=== PATIENT | male | born 1935 | race Caucasian/White ===

== ENCOUNTER 2018-02-17 10:31 | Emergency (ER) | payer MEDICARE, MEDICAID ==
[~2018-02-17] VITALS: Ht 167.6 cm; Wt 63.5 kg
[~2018-02-17 10:31] MED LIST: COUMADIN6 MG ORAL; DIGITEK125 MCG PO; FUROSEMIDE40 MG ORAL; GUAIFENESI100 MG/5 M ORAL; LIPITOR40 MG ORAL; LISINOPRIL5 MG ORAL; METOPROLOL SUCC25 MG ORAL; MIRTAZAPINE15 MG ORAL; NORCO 10/3251 EA ORAL; OXYCODONE HCL E10 MG PO; PRILOSEC20 MG ORAL; SPIRONOLACTONE25 MG ORAL; TRAZODONE HCL150 MG ORAL; TYLENOL325 MG ORAL; XANAX0.25 MG ORAL
[2018-02-17 10:40] VITALS: BP 98/57
[2018-02-17] MEDS ORDERED: LORATADINE10 M2 PO (10:43)
[2018-02-17] MEDS ORDERED: CEPHALEXIN500 MG ORAL (10:43)
[2018-02-17] MEDS ORDERED: MULTIVITAMINS1 EAC2 ORAL (10:43)
[2018-02-17] MEDS ORDERED: CITALOPRAM10 MG/5 M1 ORAL (10:43)
[2018-02-17] MEDS ORDERED: MILK OF MA2400 MG/10 ORAL (10:43)
[2018-02-17] MEDS ORDERED: TYLENOL325 M1 PO (10:43)
--- NOTE | 2018-02-17 10:57 | NUR ---
ED Nurse Note: pt came from [facility] d/t bilateral pedal edema. reports pain 09/29. Pt vss at the moment, labs have been drawn per md order. will continue to monitor pt and await further orders
[2018-02-17 11:08] LABS: APPEARANCE,URINE CLEAR; BILIRUBIN, URINE NEGATIVE (NEGATIVE); COLOR,URINE PALE YELLOW; GLUCOSE, URINE (UA) NEGATIVE (NEGATIVE); KETONES,URINE NEGATIVE (NEGATIVE); LEUKOCYTE ESTERASE ,URINE NEGATIVE (NEGATIVE); NITRITE,URINE NEGATIVE (NEGATIVE); PH,URINE 5 (4.5-8.0); PROTEIN,URINE NEGATIVE (NEGATIVE); UROBILINOGEN,URINE NORMAL MG/DL (0.0-1.0)
[2018-02-17 11:09] LABS: BASOPHILS % (AUTO) 1.4 % (0.0-2.0); EOSINOPHILS % (AUTO) 6.5 % (0.0-3.0); HEMATOCRIT 43.1 % (42.0-52.0); HEMOGLOBIN 14.2 G/DL (14.2-18.0); LYMPHOCYTES % (AUTO) 30.9 % (20.0-45.0); MEAN CORPUSCULAR VOLUME 103 FL (80-99); MONOCYTES % (AUTO) 12.7 % (1.0-10.0); NEUTROPHILS % (AUTO) 48.5 % (45.0-75.0); PLATELET COUNT 197 K/UL (150-450); RED BLOOD COUNT 4.18 M/UL (4.70-6.10); RED CELL DISTRIBUTION WIDTH 13.8 % (11.6-14.8); WHITE BLOOD COUNT 5.1 K/UL (4.8-10.8)
--- NOTE | 2018-02-17 11:11 | Diagnostic Imaging Report ---
EXAM: XR Chest, 1 View CLINICAL HISTORY: CP TECHNIQUE: Frontal view of the chest. COMPARISON: No relevant prior studies available. FINDINGS: Lungs: Reduced lung volumes. No confluent consolidation. Query small nodular opacity in the left costophrenic region. Pleural space: No pneumothorax. Heart: Large cardiac mediastinal silhouette. Prominent right hilum. Mediastinum: See above. Bones/joints: No acute fracture. IMPRESSION: Reduced lung volumes. No confluent consolidation.
[2018-02-17 11:21] LABS: ANION GAP 8 mmol/L (5-15); BLOOD UREA NITROGEN 22 mg/dL (7-18); CALCIUM 9.2 MG/DL (8.5-10.1); CARBON DIOXIDE 28 MMOL/L (21-32); CHLORIDE 103 MMOL/L (98-107); CREATININE 0.9 MG/DL (0.55-1.30); INR 1.5 (0.9-1.1); POTASSIUM 3.8 MMOL/L (3.5-5.1); SODIUM 139 MMOL/L (136-145)
[2018-02-17 11:31] LABS: ALANINE AMINOTRANSFERASE 29 U/L (12-78); ALBUMIN 3.5 G/DL (3.4-5.0); ALBUMIN/GLOBULIN RATIO 0.8 (1.0-2.7); ALKALINE PHOSPHATASE 176 U/L (46-116); ASPARTATE AMINO TRANSFERASE 28 U/L (15-37); BILIRUBIN,TOTAL 0.6 MG/DL (0.2-1.0); CREATINE KINASE 75 U/L (26-308)
--- NOTE | 2018-02-17 12:12 | Emergency Room Report ---
History of Present Illness General Chief Complaint: Edema Source: Patient Present Illness HPI Patient is sent in for edema of his lower extremities. It's worse on his right than his left. The patient is had a stroke and therefore has very poor recent memory. He does complain about pain there. He says he feels chills at times. He denies shortness of breath, cough, hemoptysis or chest pain. He states his last tetanus was 2 years ago. Pain rated 8/10, pressure. Worse when standing. Denies headache, Denies DM H/O HTN H/O COPD Allergies: Coded Allergies: NORTRIPTYLINE (Verified Allergy, Intermediate, 07/17/15) Patient History Past Medical History: see triage record Social History Narrative SNF Reviewed Nursing Documentation: PMH: Agreed; PSxH: Agreed Nursing Documentation-PM Past Medical History: No History, Except For Hx Hypertension: Yes Hx COPD: Yes History Of Psychiatric Problem: Yes - Depression, Anxiety Review of Systems All Other Systems: negative except mentioned in HPI Physical Exam Vital Signs Date Time Temp Pulse Resp B/P (MAP) Pulse Ox O2 Delivery O2 Flow Rate FiO2 02/17/18 10:33 97.9 108 20 98/57 98 Room Air Sp02 EP Interpretation: reviewed, normal General Appearance: well appearing, no apparent distress, GCS 15 Head: normocephalic Eyes: bilateral eye normal inspection, bilateral eye PERRL ENT: moist mucus membranes Neck: supple Respiratory: lungs clear, normal breath sounds Cardiovascular #1: regular rate, rhythm, edema - R>> L Cardiovascular #2: 2+ radial (R) Gastrointestinal: normal inspection, normal bowel sounds, non tender, no mass, non-distended Musculoskeletal: back normal, normal range of motion, no calf tenderness, Rohit 's Sign negative, other - stands with assistance Neurologic: alert, sensory intact, motor weakness, oriented - X2 Psychiatric: mood/affect normal Skin: warm/dry, other - erythema R lower leg Medical Decision Making Diagnostic Impression: Primary Impression: Cellulitis Qualified Codes: L03.115 - Cellulitis of right lower limb Additional Impression: Atrial fibrillation Qualified Codes: I48.2 - Chronic atrial fibrillation ER Course Patient presents with edema and erythema the right lower leg. Differential includes DVT, cellulitis, abscess amongst others. Evaluation with EKG, chest x- ray and labs. Treatment will be with IV hydration and most likely what he will need antibiotics. EKG with atrial fibrillation nonspecific ST-T wave changes. Chest x-ray and a right prominence of off of the right atrium. White count is normal. Antibodies are begun. Patient was presented to Dr. Yousif at [facility] who accepts the patient. Improved with treatment. The patient is stable for transfer. He will be going to [facility]. Laboratory Tests Test 02/17/18 10:55 White Blood Count 5.1 K/UL (4.8-10.8) Red Blood Count 4.18 M/UL (4.70-6.10) L Hemoglobin 14.2 G/DL (14.2-18.0) Hematocrit 43.1 % (42.0-52.0) Mean Corpuscular Volume 103 FL (80-99) H Mean Corpuscular Hemoglobin 34.0 PG (27.0-31.0) H Mean Corpuscular Hemoglobin Concent 33.0 G/DL (32.0-36.0) Red Cell Distribution Width 13.8 % (11.6-14.8) Platelet Count 197 K/UL (150-450) Mean Platelet Volume 5.3 FL (6.5-10.1) L Neutrophils (%) (Auto) 48.5 % (45.0-75.0) Lymphocytes (%) (Auto) 30.9 % (20.0-45.0) Monocytes (%) (Auto) 12.7 % (1.0-10.0) H Eosinophils (%) (Auto) 6.5 % (0.0-3.0) H Basophils (%) (Auto) 1.4 % (0.0-2.0) Prothrombin Time 15.6 SEC (9.30-11.50) H Prothrombin Time INR 1.5 (0.9-1.1) H PTT 45 SEC (23-33) H Urine Color Pale yellow Urine Appearance Clear Urine pH 5 (4.5-8.0) Urine Specific [place] 1.010 (1.005-1.035) Urine Protein Negative (NEGATIVE) Urine Glucose (UA) Negative (NEGATIVE) Urine Ketones Negative (NEGATIVE) Urine Blood Negative (NEGATIVE) Urine Nitrite Negative (NEGATIVE) Urine Bilirubin Negative (NEGATIVE) Urine Urobilinogen Normal MG/DL (0.0-1.0) Urine Leukocyte Esterase Negative (NEGATIVE) Sodium Level 139 MMOL/L (136-145) Potassium Level 3.8 MMOL/L (3.5-5.1) Chloride Level 103 MMOL/L (98-107) Carbon Dioxide Level 28 MMOL/L (21-32) Anion Gap 8 mmol/L (5-15) Blood Urea Nitrogen 22 mg/dL (7-18) H Creatinine 0.9 MG/DL (0.55-1.30) Estimate Glomerular Filtration Rate mL/min (>60) Glucose Level 79 MG/DL (74-106) Lactic Acid Level 1.30 mmol/L (0.4-2.0) Calcium Level 9.2 MG/DL (8.5-10.1) Magnesium Level 2.0 MG/DL (1.8-2.4) Total Bilirubin 0.6 MG/DL (0.2-1.0) Aspartate Amino Transferase (AST) 28 U/L (15-37) Alanine Aminotransferase (ALT) 29 U/L (12-78) Alkaline Phosphatase 176 U/L (46-116) H Total Creatine Kinase 75 U/L (26-308) Troponin I 0.021 ng/mL (0.000-0.056) Pro-B-Type Natriuretic Peptide 1916 pg/mL (0-125) H Total Protein 7.7 G/DL (6.4-8.2) Albumin 3.5 G/DL (3.4-5.0) Globulin 4.2 g/dL Albumin/Globulin Ratio 0.8 (1.0-2.7) L EKG Diagnostic Results Rate: normal - rate 80 Rhythm: other - a fib ST Segments: no acute changes Rhythm Strip Diag. Results EP Interpretation: yes Rhythm: no PVC's, no ectopy, other - a fib Chest X-Ray Diagnostic Results Chest X-Ray Diagnostic Results : Chest X-Ray Ordered: Yes # of Views/Limited/Complete: 1 View Indication: Other EP Interpretation: Yes Interpretation: no consolidation, no effusion, no pneumothorax, other - ectatic R atrial prominance Impression: Other Electronically Signed by: Electronically signed by Dilan Berkowitz MD Last Vital Signs Date Time Temp Pulse Resp B/P (MAP) Pulse Ox O2 Delivery O2 Flow Rate FiO2 02/17/18 15:15 97.9 82 16 104/69 96 Room Air Status: improved Disposition: [facility] Condition: Serious Referrals: Dylan Shipman MD (PCP) Dilan Berkowitz MD Feb 17, 2018 12:12
[2018-02-17] MEDS ORDERED: Piperacillin/Tazobactam 3.375 GM in NS 110 ML IVPB ONE (12:15)
[2018-02-17] MEDS ORDERED: Vancomycin 1 GM in D5W 275 ML IVPB ONE (12:15)
[2018-02-17 12:30] VITALS: BP 101/57
--- NOTE | 2018-02-17 14:39 | NUR ---
ED Nurse Note: telephone report given to FARAZ Joel at [facility]. Zosyn is still running at this time.
[2018-02-17 14:46] VITALS: BP 104/69
--- NOTE | 2018-02-17 15:10 | NUR ---
ED Nurse Note: Ambulance arrived to take pt to [facility]. Pt vss, pt was cooperative, pt reported no pain.
[2018-02-17 15:15] VITALS: BP 104/69
== END 2018-02-17 15:10 | disposition short-term general hospital (02) ==
LOC: EDBD 10:31 → EMR 11:21
DX: L03.115 Cellulitis of right lower limb (principal); I48.2 Chronic atrial fibrillation; R60.0 Localized edema; I10 Essential (primary) hypertension; J44.9 Chronic obstructive pulmonary disease, unspecified; Z88.8 Allergy status to other drugs, medicaments and biological substances
CPT/HCPCS: 36415; 71045; 80053; 81003; 82550; 83605; 83735; 83880; 84484; 85025; 85610; 85730; 93005; 96361; 96365; 96367; 99285; J2543; J3370

== ENCOUNTER 2019-02-07 08:01 | Emergency (ER) | payer MEDICARE, MEDICAID ==
[~2019-02-07] VITALS: Ht 170.2 cm; Wt 63.5 kg
[~2019-02-07 08:01] MED LIST changes: +CEPHALEXIN500 MG ORAL; +CITALOPRAM10 MG/5 M1 ORAL; +LORATADINE10 M2 PO; +MILK OF MA2400 MG/10 ORAL; +MULTIVITAMINS1 EAC2 ORAL; +TYLENOL325 M1 PO
[2019-02-07 08:07] VITALS: BP 110/78
--- NOTE | 2019-02-07 08:07 | NUR ---
ED Nurse Note: PT BROUGHT IN BY [facility] SMITH PRESENTS TO ED WITH NOSE BLEEDING. PER MES,PT WAS PICKING ON HIS NOSE THIS MORNING AND STARTED TO BLEED. NO FALL/TRAUMA. PT REPORTED TO BE TAKING COUMADIN. AAO X1, WITHDRAWS TO PAIN. NOTED DRIED BLOOD ON PT'S FACE AND NOSE WITH NASAL PACKING ON RIGHT NOSTRIL. NO RESPIRATORY DISTRESS AND SPEAKS IN FULL SENTENCES.
--- NOTE | 2019-02-07 08:07 | Emergency Room Report ---
History of Present Illness General Chief Complaint: General Complaint Source: Patient, EMS Present Illness HPI Disclaimer: Please note that this report is being documented using DRAGON technology. This can lead to erroneous entry secondary to incorrect interpretation by the dictating instrument. HPI: 83-year-old male with history of severe dementia, atrial fibrillation currently on Coumadin presents for evaluation of epistaxis. There was no trauma reported. The patient presents from his nursing facility after they could not control bleeding at the side. He was reportedly picking his nose early this morning and could not stop the bleeding. A rapid Rhino was placed which achieved hemostasis. No further bleeding reported. Unclear how much blood he lost at the scene. Patient was agitated on route trying to rip off his bandages and arrives in soft wrist restraints tied to the gurney by EMS. Cannot provide any significant history given his significant dementia. He is complaining of dysuria over the past few days. PMH: Atrial fibrillation, dementia, CHF, COPD, hypertension PSH: Reviewed Allergies: NSAIDs, nortriptyline Social Hx: Unknown Allergies: Coded Allergies: NORTRIPTYLINE (Verified Allergy, Intermediate, 07/17/15) NSAIDS (NON-STEROIDAL ANTI-INFLAMMA (Unverified Allergy, Unknown, 02/07/19 ) Nursing Documentation-PMH Hx Hypertension: Yes Hx COPD: Yes Review of Systems All Other Systems: negative except mentioned in HPI Physical Exam Vital Signs Date Time Temp Pulse Resp B/P (MAP) Pulse Ox O2 Delivery O2 Flow Rate FiO2 02/07/19 07:57 100 18 157/90 (112) 97 Room Air General: Awake and alert, no acute distress HEENT: Normocephalic, atraumatic. Multiple skin picking sites over the right mosque, one of which is bleeding. No tenderness or soft tissue swelling over the facial bones. EOMI. PERRLA. There is a rapid Rhino placed in the right nares with hemostasis achieved. Dried blood around the mouth and in the tongue. No active bleeding visualized. Neck: Supple, trachea midline. Arrives without cervical collar Chest Wall: No tenderness, no deformity, no crepitus CV: Irregularly irregular rhythm. Resp: Normal work of breathing. No cough, wheezing or crackles appreciated Abd: Soft, nontender, nondistended Skin: Intact. No abrasions, laceration or rash over the exposed skin MSK: Normal tone and bulk. No obvious deformity. Moving all extremities. Ambulating without difficulty. Neuro: Awake and alert. Demented, confused, agitated. Medical Decision Making Diagnostic Impression: Primary Impression: Epistaxis Additional Impression: Subtherapeutic international normalized ratio (INR) ER Course 83-year-old anticoagulated male presents for evaluation of epistaxis. Currently hemostatic with rapid Rhino in place. No trauma reported. Will obtain labs to rule out significant blood loss and check INR. He arrives with stable vital signs and is well-appearing. Laboratory Tests Test 02/07/19 08:15 02/07/19 08:45 White Blood Count 7.8 K/UL (4.8-10.8) Red Blood Count 4.03 M/UL (4.70-6.10) L Hemoglobin 13.7 G/DL (14.2-18.0) L Hematocrit 40.7 % (42.0-52.0) L Mean Corpuscular Volume 101 FL (80-99) H Mean Corpuscular Hemoglobin 34.0 PG (27.0-31.0) H Mean Corpuscular Hemoglobin Concent 33.7 G/DL (32.0-36.0) Red Cell Distribution Width 14.8 % (11.6-14.8) Platelet Count 171 K/UL (150-450) Mean Platelet Volume 5.6 FL (6.5-10.1) L Neutrophils (%) (Auto) 73.5 % (45.0-75.0) Lymphocytes (%) (Auto) 13.0 % (20.0-45.0) L Monocytes (%) (Auto) 12.3 % (1.0-10.0) H Eosinophils (%) (Auto) 0.7 % (0.0-3.0) Basophils (%) (Auto) 0.5 % (0.0-2.0) Prothrombin Time 11.4 SEC (9.30-11.50) Prothrombin Time INR 1.1 (0.9-1.1) Sodium Level 137 MMOL/L (136-145) Potassium Level 4.8 MMOL/L (3.5-5.1) Chloride Level 102 MMOL/L (98-107) Carbon Dioxide Level 27 MMOL/L (21-32) Anion Gap 8 mmol/L (5-15) Blood Urea Nitrogen 33 mg/dL (7-18) H Creatinine 1.0 MG/DL (0.55-1.30) Estimate Glomerular Filtration Rate mL/min (>60) Glucose Level 119 MG/DL (74-106) H Calcium Level 9.4 MG/DL (8.5-10.1) Urine Color Yellow Urine Appearance Clear Urine pH 5 (4.5-8.0) Urine Specific [place] 1.015 (1.005-1.035) Urine Protein 3+ (NEGATIVE) H Urine Glucose (UA) Negative (NEGATIVE) Urine Ketones Negative (NEGATIVE) Urine Blood 1+ (NEGATIVE) H Urine Nitrite Negative (NEGATIVE) Urine Bilirubin Negative (NEGATIVE) Urine Urobilinogen 8 MG/DL (0.0-1.0) H Urine Leukocyte Esterase 1+ (NEGATIVE) H Urine RBC 0-2 /HPF (0 - 0) H Urine WBC 2-4 /HPF (0 - 0) Urine Squamous Epithelial Cells Few /LPF (NONE/OCC) Urine Bacteria Occasional /HPF (NONE) Reevaluation Time: 10:32 Last Vital Signs Date Time Temp Pulse Resp B/P (MAP) Pulse Ox O2 Delivery O2 Flow Rate FiO2 02/07/19 07:57 100 18 157/90 (112) 97 Room Air Reevaluation Impression INR found to be subtherapeutic. No evidence of urinary tract infection. No anemia. Bleeding is controlled and Rhino Rocket was removed. No recurrent epistaxis. The patient is stable and suitable for outpatient follow-up. I updated his PMD. We will follow-up as outpatient. We will arrange for return to his facility. Disposition: [facility] Condition: Stable Carlitos Khan MD Feb 07, 2019 08:07
[2019-02-07] MEDS ORDERED: LIPITOR20 MG ORAL (08:19)
[2019-02-07] MEDS ORDERED: CEPACOL SORE T1 EAC5 MM (08:19)
[2019-02-07] MEDS ORDERED: GABAPENTIN100 MG ORAL (08:19)
[2019-02-07] MEDS ORDERED: DOCUSATE SODIU100 M2 ORAL (08:19)
[2019-02-07] MEDS ORDERED: OMEPRAZOLE20 M2 ORAL (08:19)
[2019-02-07] MEDS ORDERED: LORazepam Inj 2mg/ml 1ml IV ONE ×2 (08:30→09:00)
[2019-02-07 08:44] LABS: ANION GAP 8 mmol/L (5-15); BLOOD UREA NITROGEN 33 mg/dL (7-18); CALCIUM 9.4 MG/DL (8.5-10.1); CARBON DIOXIDE 27 MMOL/L (21-32); CHLORIDE 102 MMOL/L (98-107); POTASSIUM 4.8 MMOL/L (3.5-5.1); SODIUM 137 MMOL/L (136-145)
--- NOTE | 2019-02-07 08:50 | NUR ---
ED Nurse Note: COLLECTED URIEN THEN SENT.
[2019-02-07 09:02] LABS: BASOPHILS % (AUTO) 0.5 % (0.0-2.0); EOSINOPHILS % (AUTO) 0.7 % (0.0-3.0); HEMATOCRIT 40.7 % (42.0-52.0); HEMOGLOBIN 13.7 G/DL (14.2-18.0); MEAN CORPUSCULAR VOLUME 101 FL (80-99); MONOCYTES % (AUTO) 12.3 % (1.0-10.0); NEUTROPHILS % (AUTO) 73.5 % (45.0-75.0); PLATELET COUNT 171 K/UL (150-450); RED BLOOD COUNT 4.03 M/UL (4.70-6.10); RED CELL DISTRIBUTION WIDTH 14.8 % (11.6-14.8); WHITE BLOOD COUNT 7.8 K/UL (4.8-10.8)
[2019-02-07 09:05] LABS: INR 1.1 (0.9-1.1)
[2019-02-07 09:06] LABS: APPEARANCE,URINE CLEAR; BILIRUBIN, URINE NEGATIVE (NEGATIVE); GLUCOSE, URINE (UA) NEGATIVE (NEGATIVE); KETONES,URINE NEGATIVE (NEGATIVE); LEUKOCYTE ESTERASE ,URINE 1+ (NEGATIVE); NITRITE,URINE NEGATIVE (NEGATIVE); PH,URINE 5 (4.5-8.0); PROTEIN,URINE 3+ (NEGATIVE); UROBILINOGEN,URINE 8 MG/DL (0.0-1.0)
[2019-02-07 09:11] LABS: COLOR,URINE YELLOW
--- NOTE | 2019-02-07 09:40 | NUR ---
ED Nurse Note: PT TAKEN TO CT AND STABLE.
--- NOTE | 2019-02-07 09:55 | NUR ---
ED Nurse Note: PT CAME BACK FROM CT AND STABLE.
--- NOTE | 2019-02-07 10:02 | NUR ---
ED Nurse Note: TRAVIS FROM RADIOLOGY STATES THEY WERE UNABLE TO DO CT HEAD DUE TO PT WAS MOVING TOO MUCH. JOSSIE NOTIFIED.
[2019-02-07 10:10] VITALS: BP 95/76
[2019-02-07] MEDS ORDERED: Hydrogen Peroxide 473ml Bottle TOPIC ONE ×2 (10:15→10:16)
--- NOTE | 2019-02-07 10:20 | NUR ---
ED Nurse Note: RN CLEANSED DRIED BLOOD ON FACE WITH NS AND HYDROGEN PEROXIDE AND PATTED DRY. DR RICHARDSON ORDERED TO REMOVE NASAL PACKING AT THIS TIME. NO ACTIVE BLEEDING NOTED.
--- NOTE | 2019-02-07 10:58 | NUR ---
ED Nurse Note: REPORT GIVEN TO TOMMIE RUTH OF [facility].
--- NOTE | 2019-02-07 11:56 | NUR ---
ED Nurse Note: transporation arrived. VS checked which was stable and report given to FRANCO Rivera. pt left unit in stable condition. no bleeding, iv and id band removed.
[2019-02-07 11:57] VITALS: BP 107/81
== END 2019-02-07 11:59 ==
LOC: EDBD 08:01 → EMR 09:40
DX: R04.0 Epistaxis (principal); R79.1 Abnormal coagulation profile; I10 Essential (primary) hypertension; J44.9 Chronic obstructive pulmonary disease, unspecified; Z88.6 Allergy status to analgesic agent; Z88.8 Allergy status to other drugs, medicaments and biological substances
CPT/HCPCS: 36415; 80048; 81003; 85025; 85610; 96374; 99284

== ENCOUNTER 2019-02-22 12:52 | Inpatient (IN) | payer MEDICARE, MEDICAID ==
[~2019-02-22] VITALS: Ht 165.1 cm; Wt 64.4 kg
[2019-02-22] VITALS (7 sets, daily range): BP systolic 80–127; BP diastolic 51–68
[~2019-02-22 12:52] MED LIST changes: +CEPACOL SORE T1 EAC5 MM; +DOCUSATE SODIU100 M2 ORAL; +GABAPENTIN100 MG ORAL; +LIPITOR20 MG ORAL; +OMEPRAZOLE20 M2 ORAL
--- NOTE | 2019-02-22 12:52 | NUR ---
ED Nurse Note: Pt BIBA for CO generalized pain 8/10 and abnormal labs. Pt aao x 2-3. Pt brought in from SNF. ERMD at bedside. Pt gait is weak and shaky, pt is unable to stand on own.
[2019-02-22] MEDS ORDERED: GABAPENTIN100 MG ORAL (12:57)
[2019-02-22] MEDS ORDERED: NORCO 5-325 TA1 EACH ORAL (12:57)
[2019-02-22] MEDS ORDERED: MULTIVITAMINS1 EAC8 ORAL (12:57)
[2019-02-22] MEDS ORDERED: METOPROLOL TART25 MG ORAL (12:57)
[2019-02-22] MEDS ORDERED: Morphine Sulfate 2mg/ml Inj(IV/IM USE ONLY) IVP ONE ×2 (13:15→15:00)
--- NOTE | 2019-02-22 13:25 | NUR ---
ED Nurse Note: Patient reports 'I cannot pee, feels like I need to go, but I can't' Patient has hx of dementia. Patient wanted to stand up for urination. RN/EMT tech assisted patient from sitting to standing and patient was shaking a lot. Assisted patient back to the bed. Slight distended bladder on palpation noted. ERMD made aware. Educated patient to remain in bed due to high fall risk.
--- NOTE | 2019-02-22 13:30 | NUR ---
ED Nurse Note: RN inserted f/c 16Fr as ordered without any resistance @ 1316. Patient tolerated the procedure with minimal discomfort.
--- NOTE | 2019-02-22 13:37 | Diagnostic Imaging Report ---
Indication: Altered mental status Technique: XRAY Chest 1v Comparison: 02/17/2018 Findings: The exam as patient is rotated significantly to the right. Heart size appears enlarged but stable compared to the prior exam. There are atherosclerotic gastric calcifications. There is haziness of the pulmonary vascularity suggesting mild interstitial edema/fluid overload. There are asymmetric opacities in the left lower lung. There is blunting of the left costophrenic sulcus suggesting trace left pleural effusion. No pneumothorax. There are degenerative changes in the spine. No acute osseous abnormality. Impression: Focal asymmetric hazy opacities in the left lower lung concerning for pneumonia. Clinical correlation and follow-up recommended. Underlying slight haziness of the pulmonary vascularity suggesting mild congestive changes or fluid overload.
[2019-02-22 13:53] LABS: APPEARANCE,URINE CLEAR; BILIRUBIN, URINE NEGATIVE (NEGATIVE); GLUCOSE, URINE (UA) NEGATIVE (NEGATIVE); KETONES,URINE NEGATIVE (NEGATIVE); LEUKOCYTE ESTERASE ,URINE NEGATIVE (NEGATIVE); NITRITE,URINE NEGATIVE (NEGATIVE); PH,URINE 5 (4.5-8.0); PROTEIN,URINE 1+ (NEGATIVE); UROBILINOGEN,URINE 1 MG/DL (0.0-1.0)
[2019-02-22 13:54] LABS: BASOPHILS % (AUTO) 0.4 % (0.0-2.0); EOSINOPHILS % (AUTO) 0.2 % (0.0-3.0); HEMATOCRIT 38.2 % (42.0-52.0); HEMOGLOBIN 12.6 G/DL (14.2-18.0); LYMPHOCYTES % (AUTO) 13.9 % (20.0-45.0); MEAN CORPUSCULAR VOLUME 102 FL (80-99); NEUTROPHILS % (AUTO) 76.5 % (45.0-75.0); PLATELET COUNT 225 K/UL (150-450); RED BLOOD COUNT 3.74 M/UL (4.70-6.10); RED CELL DISTRIBUTION WIDTH 15.5 % (11.6-14.8); WHITE BLOOD COUNT 6.5 K/UL (4.8-10.8)
[2019-02-22 13:55] LABS: COLOR,URINE YELLOW
[2019-02-22 13:57] LABS: ANION GAP 13 mmol/L (5-15); BLOOD UREA NITROGEN 49 mg/dL (7-18); CALCIUM 8.5 MG/DL (8.5-10.1); CARBON DIOXIDE 23 MMOL/L (21-32); CHLORIDE 98 MMOL/L (98-107); CREATININE 1.9 MG/DL (0.55-1.30); POTASSIUM 5.4 MMOL/L (3.5-5.1); SODIUM 134 MMOL/L (136-145)
[2019-02-22 14:10] LABS: ALANINE AMINOTRANSFERASE 37 U/L (12-78); ALBUMIN 3.4 G/DL (3.4-5.0); ALKALINE PHOSPHATASE 168 U/L (46-116); ASPARTATE AMINO TRANSFERASE 45 U/L (15-37); BILIRUBIN,TOTAL 1.3 MG/DL (0.2-1.0); CREATINE KINASE 128 U/L (26-308)
--- NOTE | 2019-02-22 14:12 | Emergency Room Report ---
History of Present Illness General Chief Complaint: Pain Source: Patient, EMS (Dilan Berkowitz MD) Present Illness HPI Patient was transported by EMS for total body pain. He was complained about 8/ 10 pain to paramedics. Apparently they report his oxygen saturation was 89%. Review of the ambulance report does not have this documented. From a senior living facility. The patient is a poor historian. He admits to prior smoking marijuana but denies smoking cigarettes or having problems with his lungs. He is complaining that he has to urinate at this time and is perseverating on that. The patient has a history of atrial fibrillation and is on warfarin. The patient states he needs to urinate and cannot. Is complaining about pain on his right side. He rates his pain 8/10. He poorly characterizes it. Full review of systems is not obtainable as he is not answering questions. 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 use - THC Social History Narrative long-term facility Reviewed Nursing Documentation: PMH: Agreed; PSxH: Agreed (Dilan Berkowitz MD) Nursing Documentation-PMH Past Medical History: No History, Except For Hx Cardiac Problems: Yes - STROKE, CHF,depression, anxiety Hx Hypertension: Yes Hx COPD: Yes Hx Gastrointestinal Problems: Yes - diverticulitis, GERD Hx Neurological Problems: Yes - dementia (Dilan Berkowitz MD) Review of Systems All Other Systems: limited (Dilan Berkowitz MD) Physical Exam Vital Signs Date Time Temp Pulse Resp B/P (MAP) Pulse Ox O2 Delivery O2 Flow Rate FiO2 02/22/19 12:41 93.9 107 16 93/63 (73) 90 Room Air Sp02 EP Interpretation: reviewed, abnormal - Interpreted as low by me General Appearance: alert, mild distress, thin, Chronically Ill Head: normocephalic, atraumatic Eyes: bilateral eye normal inspection, bilateral eye PERRL, bilateral eye EOMI ENT: dry mucus membranes Neck: supple, no meningismus, no bony tend Respiratory: chest non-tender, decreased breath sounds, wheezing, expiration Cardiovascular #1: irregularly irregular, edema - Bilateral brawny worse on right Cardiovascular #2: 2+ radial (R), 2+ dorsalis pedis (R), 2+ dorsalis pedis (L) Gastrointestinal: normal inspection, normal bowel sounds, non tender Genitourinary: no CVA tenderness Musculoskeletal: pelvis stable, tender - Bilateral lower extremities Neurologic: alert, oriented - X1, DTRs symmetric, motor weakness - Lower extremities - upper extremities with normal strength Psychiatric: anxious - Agitated Skin: normal color, other - erythema LE bilat, R > L (Dilan Berkowitz MD) Procedures Critical Care Time Critical Care Time Total Critical Care Time: 90 min bedside evaluation and treatment excludes procedures (EKG). Reason for critical care: Hypoxia, hypotension, pneumonia, elevated INR Possible complications: hypotension, hypertension, [place], shock, arrhythmias, metabolic acidosis, end organ damage, respiratory failure. Interventions: Fluid bolus, antibiotics, analgesia, repeated evaluations, pressures and plasma transfusion, managing agitation, discussion with [facility] physician Course: Patient via EMS with body pain and low oxygen saturation. Difficult to care for patient as he is agitated.. Improved with Persaud catheter. Improved with morphine. Left lower lobe pneumonia and bolus of fluid given and antibiotics begun. INR greater than 10. Discussion with blood bank to transfuse fresh frozen plasma. Blood pressure low and bolus infusing infusing. Repeat analgesia. Fresh frozen plasma infusing without difficulty. Discussion with [facility] physician and deemed not stable for transfer. Repeat evaluation with improved oxygen saturation and blood pressure. Consultations: nursing staff, EMS, blood bank, respiratory therapy, [facility] physician Performed by: Dr. Berkowitz Tolerated well condition = critical (Dilan Berkowitz MD) Medical Decision Making Diagnostic Impression: Primary Impression: Left lower lobe pneumonia Qualified Codes: J18.9 - Pneumonia, unspecified organism Additional Impressions: Cellulitis of right leg Renal insufficiency Excessive anticoagulation Atrial fibrillation Qualified Codes: I48.11 - Longstanding persistent atrial fibrillation ER Course Patient presents with hypoxia respiratory difficulty and some agitation. Differential includes acute myocardial infarction, sepsis, pneumonia, cellulitis amongst others. Evaluation with EKG, chest x-ray and labs. Patient oxygen is better. Breathing treatments ordered. Patient appears dry and a bolus of fluids ordered. Agitated. Will give morphine and reassess agitation. EKG atrial fibrillation with nonspecific ST-T wave changes. Chest x-ray left lower lobe infiltrate and COPD. Normal white count. Slight anemia. Renal insufficiency elevated BNP. Initial lactic acid elevated. Influenza negative. Antibiotics ordered for left lower lobe infiltrate. Less agitation after morphine. More cooperative. INR > 10 called. Type and Rh ordered and discussed with blood bank need for FFP. Emergency transfusion signed by physicians. Attempt to call family. Patient with pain and requests removal of persaud. C/O pain in "backside" morphine repeated. Discussed with Dr. Kody Perez - making non-transferrable. Signed out to Dr. Kruse. He discussed treatment with family members. Allegedly DNI DNR. They agreed with fresh frozen plasma transfusions. Patient improved but still critical. Laboratory Tests Test 02/22/19 13:24 02/22/19 18:13 White Blood Count 6.5 K/UL (4.8-10.8) Red Blood Count 3.74 M/UL (4.70-6.10) L Hemoglobin 12.6 G/DL (14.2-18.0) L Hematocrit 38.2 % (42.0-52.0) L Mean Corpuscular Volume 102 FL (80-99) H Mean Corpuscular Hemoglobin 33.8 PG (27.0-31.0) H Mean Corpuscular Hemoglobin Concent 33.1 G/DL (32.0-36.0) Red Cell Distribution Width 15.5 % (11.6-14.8) H Platelet Count 225 K/UL (150-450) Mean Platelet Volume 6.1 FL (6.5-10.1) L Neutrophils (%) (Auto) 76.5 % (45.0-75.0) H Lymphocytes (%) (Auto) 13.9 % (20.0-45.0) L Monocytes (%) (Auto) 9.0 % (1.0-10.0) Eosinophils (%) (Auto) 0.2 % (0.0-3.0) Basophils (%) (Auto) 0.4 % (0.0-2.0) Prothrombin Time > 150.0 SEC (9.30-11.50) H Prothrombin Time INR > 10.0 (0.9-1.1) *H PTT 65 SEC (23-33) H Urine Color Yellow Urine Appearance Clear Urine pH 5 (4.5-8.0) Urine Specific [place] 1.015 (1.005-1.035) Urine Protein 1+ (NEGATIVE) H Urine Glucose (UA) Negative (NEGATIVE) Urine Ketones Negative (NEGATIVE) Urine Blood Negative (NEGATIVE) Urine Nitrite Negative (NEGATIVE) Urine Bilirubin Negative (NEGATIVE) Urine Urobilinogen 1 MG/DL (0.0-1.0) H Urine Leukocyte Esterase Negative (NEGATIVE) Urine RBC 0 /HPF (0 - 0) Urine WBC 0-2 /HPF (0 - 0) Urine Squamous Epithelial Cells Occasional /LPF Urine Bacteria Occasional /HPF (NONE) Sodium Level 134 MMOL/L (136-145) L Potassium Level 5.4 MMOL/L (3.5-5.1) H Chloride Level 98 MMOL/L (98-107) Carbon Dioxide Level 23 MMOL/L (21-32) Anion Gap 13 mmol/L (5-15) Blood Urea Nitrogen 49 mg/dL (7-18) H Creatinine 1.9 MG/DL (0.55-1.30) H Estimate Glomerular Filtration Rate mL/min (>60) Glucose Level 88 MG/DL (74-106) Lactic Acid Level 2.60 mmol/L (0.4-2.0) H 1.80 mmol/L (0.66-2.22) Calcium Level 8.5 MG/DL (8.5-10.1) Magnesium Level 2.3 MG/DL (1.8-2.4) Total Bilirubin 1.3 MG/DL (0.2-1.0) H Direct Bilirubin 0.9 MG/DL (0.0-0.3) H Aspartate Amino Transferase (AST) 45 U/L (15-37) H Alanine Aminotransferase (ALT) 37 U/L (12-78) Alkaline Phosphatase 168 U/L (46-116) H Total Creatine Kinase 128 U/L (26-308) Troponin I 0.034 ng/mL (0.000-0.056) Pro-B-Type Natriuretic Peptide 5061 pg/mL (0-125) H Total Protein 6.9 G/DL (6.4-8.2) Albumin 3.4 G/DL (3.4-5.0) Globulin 3.5 g/dL Albumin/Globulin Ratio 1.0 (1.0-2.7) Lipase 55 U/L (73-393) L Microbiology Date/Time Source Procedure Growth Status 02/22/19 13:24 Nasal Nares - Final Complete 02/22/19 13:24 Nasal Nares - Final Complete (Dilan Berkowitz MD) ER Course Patient is an 83-year-old male presented for sepsis. He was noted to be anticoagulated with Coumadin for atrial fibrillation. 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 Patient was started on IV FFP to reverse coagulopathy. Dr. Aaron Shipman was contacted for inpatient management due to covering physician for [facility] Labs Test 02/22/19 13:24 White Blood Count 6.5 K/UL (4.8-10.8) Red Blood Count 3.74 M/UL (4.70-6.10) Hemoglobin 12.6 G/DL (14.2-18.0) Hematocrit 38.2 % (42.0-52.0) Mean Corpuscular Volume 102 FL (80-99) Mean Corpuscular Hemoglobin 33.8 PG (27.0-31.0) Mean Corpuscular Hemoglobin Concent 33.1 G/DL (32.0-36.0) Red Cell Distribution Width 15.5 % (11.6-14.8) Platelet Count 225 K/UL (150-450) Mean Platelet Volume 6.1 FL (6.5-10.1) Neutrophils (%) (Auto) 76.5 % (45.0-75.0) Lymphocytes (%) (Auto) 13.9 % (20.0-45.0) Monocytes (%) (Auto) 9.0 % (1.0-10.0) Eosinophils (%) (Auto) 0.2 % (0.0-3.0) Basophils (%) (Auto) 0.4 % (0.0-2.0) Prothrombin Time > 150.0 SEC (9.30-11.50) Prothromb Time International Ratio > 10.0 (0.9-1.1) Activated Partial Thromboplast Time 65 SEC (23-33) Urine Color Yellow Urine Appearance Clear Urine pH 5 (4.5-8.0) Urine Specific [place] 1.015 (1.005-1.035) Urine Protein 1+ (NEGATIVE) Urine Glucose (UA) Negative (NEGATIVE) Urine Ketones Negative (NEGATIVE) Urine Blood Negative (NEGATIVE) Urine Nitrite Negative (NEGATIVE) Urine Bilirubin Negative (NEGATIVE) Urine Urobilinogen 1 MG/DL (0.0-1.0) Urine Leukocyte Esterase Negative (NEGATIVE) Urine RBC 0 /HPF (0 - 0) Urine WBC 0-2 /HPF (0 - 0) Urine Squamous Epithelial Cells Occasional /LPF Urine Bacteria Occasional /HPF (NONE) Sodium Level 134 MMOL/L (136-145) Potassium Level 5.4 MMOL/L (3.5-5.1) Chloride Level 98 MMOL/L (98-107) Carbon Dioxide Level 23 MMOL/L (21-32) Anion Gap 13 mmol/L (5-15) Blood Urea Nitrogen 49 mg/dL (7-18) Creatinine 1.9 MG/DL (0.55-1.30) Estimat Glomerular Filtration Rate mL/min (>60) Glucose Level 88 MG/DL (74-106) Lactic Acid Level 2.60 mmol/L (0.4-2.0) Calcium Level 8.5 MG/DL (8.5-10.1) Magnesium Level 2.3 MG/DL (1.8-2.4) Total Bilirubin 1.3 MG/DL (0.2-1.0) Direct Bilirubin 0.9 MG/DL (0.0-0.3) Aspartate Amino Transf (AST/SGOT) 45 U/L (15-37) Alanine Aminotransferase (ALT/SGPT) 37 U/L (12-78) Alkaline Phosphatase 168 U/L (46-116) Total Creatine Kinase 128 U/L (26-308) Troponin I 0.034 ng/mL (0.000-0.056) Pro-B-Type Natriuretic Peptide 5061 pg/mL (0-125) Total Protein 6.9 G/DL (6.4-8.2) Albumin 3.4 G/DL (3.4-5.0) Globulin 3.5 g/dL Albumin/Globulin Ratio 1.0 (1.0-2.7) Lipase 55 U/L (73-393) (Meet Kruse MD) EKG Diagnostic Results Rate: normal Rhythm: other - Fibrillation ST Segments: no acute changes - Specific ST-T wave changes (Dilan Berkowitz MD) Rhythm Strip Diag. Results EP Interpretation: yes Rhythm: no PVC's, no ectopy, other - Atrial fibrillation (Dilan Berkowitz MD) Chest X-Ray Diagnostic Results Chest X-Ray Diagnostic Results : Chest X-Ray Ordered: Yes # of Views/Limited/Complete: 1 View Indication: Other EP Interpretation: Yes Interpretation: no effusion, no pneumothorax, other - Left lower lobe infiltrate Impression: Other Electronically Signed by: Electronically signed by Dilan Berkowitz MD (Dilan Berkowitz MD) Last Vital Signs Date Time Temp Pulse Resp B/P (MAP) Pulse Ox O2 Delivery O2 Flow Rate FiO2 02/22/19 21:39 120 125/67 02/22/19 19:15 97.1 18 98 Room Air Status: improved (Dilan Berkowitz MD) Disposition: ADMITTED INPATIENT Condition: Critical Referrals: NON PHYSICIAN (PCP) Dilan Berkowitz MD Feb 22, 2019 14:12 Meet Kruse MD Feb 22, 2019 16:29
[2019-02-22] MEDS ORDERED: Vancomycin 1 GM in NS 275 ML IVPB ONE (14:15)
[2019-02-22] MEDS ORDERED: Cefepime HCl 1 GM in D5W 55 ML IVPB ONE (14:15)
[2019-02-22 14:17] LABS: PARTIAL THROMBOPLASTIN TIME 65 SEC (23-33)
[2019-02-22 14:18] LABS: INR > 10.0 (0.9-1.1)
[2019-02-22 14:26] LABS: BILIRUBIN,DIRECT 0.9 MG/DL (0.0-0.3)
--- NOTE | 2019-02-22 14:30 | NUR ---
ED Nurse Note: Pt BP 84/59, HR 104. ERMD made aware
--- NOTE | 2019-02-22 14:40 | NUR ---
ED Nurse Note: Message left to Alfonso Murray POA. RN spoke to Sherry @ [phone]. ERMD made aware. Dr. Berkowitz/Dr. Kruse signed blood transfusion form. Blood bank contacted by Dr. Berkowitz for FFP.
--- NOTE | 2019-02-22 15:15 | NUR ---
ED Nurse Note: ERMD made aware of BP 97/70 with HR 102. IV fluid running at 300ml/hr and waiting for FFP. ERMD ordered to administer FFP, bolus when it is available.
--- NOTE | 2019-02-22 15:30 | NUR ---
ED Nurse Note: Confirmed with Dr. Berkowitz and ok to administer 1L NS at 300ml/hr and FFP 3 units at bolus.
--- NOTE | 2019-02-22 15:54 | NUR ---
ED Nurse Note: All medications held due to FFP administration
--- NOTE | 2019-02-22 15:55 | NUR ---
FFP transfusion initiated, RN at bedside monitoring vital signs. Pt tolerated well.
--- NOTE | 2019-02-22 15:55 | NUR ---
ED Nurse Note: Meet Cosme informed this RN that he spoke to POA (Alfonso Murray) and patient is DNR/DNI with selective treatment only. halal butcher called him back to update POLST, but he is not available. halal butcher left message to Sherry @ [phone] to call us back.
--- NOTE | 2019-02-22 16:00 | NUR ---
ED Nurse Note: Dr. Berkowitz ordered to discontinue f/c. Patient had approximately 400ml UO. Patient tolerated the procedure without difficulty. No bleeding noted.
--- NOTE | 2019-02-22 16:10 | NUR ---
ED Nurse Note: RN at bedside for first 15 minutes of blood transfusion
--- NOTE | 2019-02-22 17:35 | NUR ---
ED Nurse Note: RN stayed with pt during first 15 mins of FFP administration, no adverse reactions noted.
--- NOTE | 2019-02-22 18:45 | NUR ---
ED Nurse Note: Report given to FARAZ Paul on SDU
[2019-02-22] MEDS ORDERED: Vancomycin 1gm vial IVPB ONE (18:58)
--- NOTE | 2019-02-22 19:10 | NUR ---
ED Nurse Note: Pt transferred to SDU, report given to Juan Carlos RN
--- NOTE | 2019-02-22 19:15 | NUR ---
NURSE NOTES: Pt transferred to unit via [facility]. Belonging checked. Skin checked and sacral s2 noted and picture taken. Pt confused, a/o x2, confused. A-fib on playground monitor with HR of 120 noted. BP 125/67, T 97/0. P 120, RR 20, Saturating at 96% on 2L O2. IV on R FA 20G, intact. Bed in the lowest position. Side rials up x3. Will continue to monitor.
--- NOTE | 2019-02-22 20:00 | NUR ---
NURSE NOTES: Admitting orders received from and will be carried out.
[2019-02-22] MEDS: Atorvastatin 20mg tab ORAL SCH (21:37)
[2019-02-22] MEDS: HYDROcodone/Acetamin 5/325 tab ORAL PRN (21:38)
[2019-02-22] MEDS: Piperacillin/Tazobactam 3.375 GM in NS 110 ML IVPB SCH (21:41)
--- NOTE | 2019-02-22 22:00 | NUR ---
NURSE NOTES: Pt is uncooperative, keeps pulling out tubings, and yelling. Refused to put gown back on. Keeps trying to get up. Will continue to monitor.
[2019-02-23] VITALS (7 sets, daily range): BP systolic 74–156; BP diastolic 45–84
[2019-02-23] MEDS: HYDROcodone/Acetamin 5/325 tab ORAL PRN ×4 (02:40→23:10)
[2019-02-23] MEDS: Piperacillin/Tazobactam 3.375 GM in NS 110 ML IVPB SCH ×3 (05:09→21:39)
[2019-02-23 05:39] LABS: BASOPHILS % (AUTO) 0.2 % (0.0-2.0); EOSINOPHILS % (AUTO) 0.2 % (0.0-3.0); HEMATOCRIT 34.1 % (42.0-52.0); HEMOGLOBIN 11.4 G/DL (14.2-18.0); LYMPHOCYTES % (AUTO) 7.6 % (20.0-45.0); MEAN CORPUSCULAR VOLUME 104 FL (80-99); MONOCYTES % (AUTO) 10.5 % (1.0-10.0); NEUTROPHILS % (AUTO) 81.5 % (45.0-75.0); PLATELET COUNT 176 K/UL (150-450); RED BLOOD COUNT 3.29 M/UL (4.70-6.10); RED CELL DISTRIBUTION WIDTH 15.8 % (11.6-14.8); WHITE BLOOD COUNT 6.1 K/UL (4.8-10.8)
[2019-02-23 07:17] LABS: ANION GAP 10 mmol/L (5-15); BLOOD UREA NITROGEN 51 mg/dL (7-18); CALCIUM 7.5 MG/DL (8.5-10.1); CARBON DIOXIDE 24 MMOL/L (21-32); CHLORIDE 102 MMOL/L (98-107); POTASSIUM 5.4 MMOL/L (3.5-5.1); SODIUM 136 MMOL/L (136-145)
--- NOTE | 2019-02-23 07:17 | NUR ---
HAND-OFF: Report given to FARAZ Pinon
--- NOTE | 2019-02-23 07:24 | NUR ---
NURSE NOTES: Received report from FARAZ Arrington. Patient is resting in bed, in stable condition. No s/sx of SOB, breathing is even and unlabored. Bed is in lowest position, brakes engaged. Call light is kept within easy reach. Will continue to monitor patient.
--- NOTE | 2019-02-23 08:43 | NUR ---
RD ASSESSMENT & RECOMMENDATIONS SEE CARE ACTIVITY FOR COMPLETE ASSESSMENT DAILY ESTIMATED NEEDS: Needs based on Wound, cardiac/ 61kg 25-30 kcals/kg 1525-130 total kcals 1.25-1.5 g protein/kg 76-91 g total protein 20-25 mL/kg 4058-8695 total fluid mLs NUTRITION DIAGNOSIS: * Increased kcal/prot needs R/T wound healing as evidenced by pt admitted w/ sacral wound per photo, pending eval. * Altered nutrition related lab values R/T cardiac hx, renal dysfunction, clinical condition as evidenced by elev BNP (5061), elev creat (2.0), elev K (5.4), low BG (58). CURRENT DIET:MONIQUE, soft easy chew PO DIET RECOMMENDATIONS: LOW NA, texture as tolerated + Snacks TID in b/w meals + Ensure Enlive once daily (350kcal/20g prot per bottle) ADDITIONAL RECOMMENDATIONS: * Daily calibrated bedscale wt- CHF dx * Monitor lytes daily w/ diuretics, replete as needed * Monitor renal fxn + lytes, need for diet restriction (elev K 5.4) * Monitor for hypoglycemia consider accuchecks for close BG monitoring -> snacks TID in b/w meals added * Ensure Enlive once daily, monitor acceptance, need to increase * Wound healing: add MVI x 1, Vit C 250mg QD Subhash 1pkt BID added
[2019-02-23] MEDS: Milk of Magnesia 30ml Ud ORAL SCH (09:00)
[2019-02-23] MEDS: Docusate 100mg cap ORAL SCH (09:00)
[2019-02-23] MEDS: Bactrim-DS 1 tab ORAL SCH ×3 (09:09→18:00)
[2019-02-23] MEDS: Furosemide 40mg tab ORAL SCH (09:10)
[2019-02-23] MEDS: Digoxin 0.125mg tab ORAL SCH (09:10)
[2019-02-23] MEDS: Spironolactone 25mg tab ORAL SCH (09:10)
--- NOTE | 2019-02-23 09:40 | NUR ---
NURSE NOTES: Patient's blood sugar at 53 mg/dL. Gave patient orange juice and ice cream. Pt is A&O x 3 moments of forgetfulness. Will reassess blood sugar in 15 minutes.
--- NOTE | 2019-02-23 09:45 | General Progress Note ---
Assessment/Plan Assessment/Plan: coagulopathy sepsis tox met encephalopathy PAF advanced age PLAN check INR Antibiotics IV hydration monitor for change dc to snf impression, plan, and exam edited and reviewed in detail care discussed with RN Subjective ROS Limited/Unobtainable: Yes Allergies: Coded Allergies: NORTRIPTYLINE (Verified Allergy, Intermediate, 07/17/15) NSAIDS (NON-STEROIDAL ANTI-INFLAMMA (Unverified Allergy, Unknown, 02/07/19 ) Objective Last 24 Hour Vital Signs Date Time Temp Pulse Resp B/P (MAP) Pulse Ox O2 Delivery O2 Flow Rate FiO2 02/23/19 09:10 104 02/23/19 09:09 104 128/84 02/23/19 08:00 Nasal Cannula 2.0 02/23/19 08:00 97.6 104 20 128/84 (99) 91 02/23/19 08:00 4.0 02/23/19 07:55 85 02/23/19 04:00 97.8 100 20 100/55 (70) 96 02/23/19 04:00 Nasal Cannula 2.0 02/23/19 04:00 2.0 02/23/19 04:00 90 02/23/19 00:00 Nasal Cannula 2.0 02/23/19 00:00 75 02/23/19 00:00 2.0 02/23/19 00:00 97.8 103 20 101/69 (80) 98 02/22/19 21:39 120 125/67 02/22/19 20:00 2.0 02/22/19 20:00 97.0 113 20 100/68 (79) 98 02/22/19 20:00 Nasal Cannula 2.0 02/22/19 19:33 118 02/22/19 19:29 Nasal Cannula 2.0 02/22/19 19:15 97.1 104 18 127/63 98 Room Air 02/22/19 19:00 97.0 104 16 127/63 98 Room Air 02/22/19 18:05 97.0 113 16 02/22/19 17:50 97.0 100 16 02/22/19 17:45 97.0 97 16 02/22/19 17:40 97.0 95 18 02/22/19 17:35 97.0 99 18 02/22/19 16:55 97.0 98 21 87/63 98 Room Air 02/22/19 16:55 97.0 98 18 02/22/19 16:50 97.0 98 18 02/22/19 16:45 97.0 96 18 02/22/19 16:39 97.0 97 18 02/22/19 16:05 96.7 99 18 02/22/19 16:00 96.9 100 19 02/22/19 15:54 96.8 96 20 84/51 98 Room Air 02/22/19 15:00 96.8 97 17 80/63 97 Room Air 02/22/19 14:30 96.8 104 21 84/59 94 Room Air 02/22/19 12:53 96.8 104 19 84/58 94 Room Air 02/22/19 12:41 93.9 107 16 93/63 (73) 90 Room Air Intake and Output 02/22/19 02/23/19 19:00 07:00 Intake Total 836.7 ml Output Total 10 ml 300 ml Balance -10 ml 536.7 ml Intake IV Total 836.7 ml Output Urine Total 10 ml 300 ml # Voids 2 Laboratory Tests 02/22/19 13:24: White Blood Count 6.5, Red Blood Count 3.74L, Hemoglobin 12.6L, Hematocrit 38.2L , Mean Corpuscular Volume 102H, Mean Corpuscular Hemoglobin 33.8H, Mean Corpuscular Hemoglobin Concent 33.1, Red Cell Distribution Width 15.5H, Platelet Count 225, Mean Platelet Volume 6.1L, Neutrophils (%) (Auto) 76.5H, Lymphocytes (%) (Auto) 13.9L, Monocytes (%) (Auto) 9.0, Eosinophils (%) (Auto) 0.2, Basophils (%) (Auto) 0.4, Prothrombin Time > 150.0H, Prothromb Time International Ratio > 10.0*H, Activated Partial Thromboplast Time 65H, Urine Color Yellow, Urine Appearance Clear, Urine pH 5, Urine Specific [place] 1.015, Urine Protein 1+H, Urine Glucose (UA) Negative, Urine Ketones Negative, Urine Blood Negative, Urine Nitrite Negative, Urine Bilirubin Negative, Urine Urobilinogen 1H, Urine Leukocyte Esterase Negative, Urine RBC 0, Urine WBC 0-2, Urine Squamous Epithelial Cells Occasional, Urine Bacteria Occasional, Sodium Level 134L, Potassium Level 5.4H, Chloride Level 98, Carbon Dioxide Level 23, Anion Gap 13, Blood Urea Nitrogen 49H, Creatinine 1.9H, Estimat Glomerular Filtration Rate , Glucose Level 88, Lactic Acid Level 2.60H, Calcium Level 8.5, Magnesium Level 2.3, Total Bilirubin 1.3H, Direct Bilirubin 0.9H, Aspartate Amino Transf (AST/SGOT) 45H, Alanine Aminotransferase (ALT/SGPT) 37, Alkaline Phosphatase 168H, Total Creatine Kinase 128, Troponin I 0.034, Pro-B-Type Natriuretic Peptide 5061H, Total Protein 6.9, Albumin 3.4, Globulin 3.5, Albumin /Globulin Ratio 1.0, Lipase 55L 02/22/19 18:13: Lactic Acid Level 1.80 02/23/19 03:30: Digoxin Level 1.9 02/23/19 03:40: White Blood Count 6.1, Red Blood Count 3.29L, Hemoglobin 11.4L, Hematocrit 34.1L , Mean Corpuscular Volume 104H, Mean Corpuscular Hemoglobin 34.6H, Mean Corpuscular Hemoglobin Concent 33.4, Red Cell Distribution Width 15.8H, Platelet Count 176, Mean Platelet Volume 6.4L, Neutrophils (%) (Auto) 81.5H, Lymphocytes (%) (Auto) 7.6L, Monocytes (%) (Auto) 10.5H, Eosinophils (%) (Auto) 0.2, Basophils (%) (Auto) 0.2, Sodium Level 136, Potassium Level 5.4H, Chloride Level 102, Carbon Dioxide Level 24, Anion Gap 10, Blood Urea Nitrogen 51H, Creatinine 2.0H, Estimat Glomerular Filtration Rate , Glucose Level 58L, Calcium Level 7.5L, Troponin I 0.036, Random Vancomycin Level 8.5 Height (Feet): 5 Height (Inches): 5.00 Weight (Pounds): 132 Objective WDWN chronically ill clear breath sounds bilaterally without rhonchi or wheeze [id number] without MRG NABS nontender no HSM no CC chronic skin changes nonfocal Dylan Shipman MD Feb 23, 2019 09:45
--- NOTE | 2019-02-23 09:55 | NUR ---
NURSE NOTES: Blood sugar reassessed, result is 66 mg/dL. Patient is A&O x 3 moments of forgetfulness, pt states no Hx of diabetes. Contacted and informed Dr. Shipman of situation, Dr. Shipman acknowledged and ordered D50%W IVP PRN for low blood sugar, D5NS 100 ml/hr. Pt has poor PO diet intake, pt states, "I don't like the food here." Offered substitutes, pt continues to refused PO diet. Orders entered, noted, and carried out. Will continue to monitor patient.
[2019-02-23] MEDS: D5NS 1,000 ML IV SCH ×2 (10:11→21:39)
[2019-02-23 10:38] LABS: INR 6.1 (0.9-1.1)
--- NOTE | 2019-02-23 11:00 | NUR ---
NURSE NOTES: Contacted and informed Dr. Shipman of patient's new PT level of 59, INR level of 6.1, and potassium level of 5.4. Dr. Shipman acknowledged and ordered PT tomorrow AM and BMP tomorrow AM. Orders entered, noted, and carried out. Will continue to monitor patient.
--- NOTE | 2019-02-23 12:45 | Consultation ---
History of Present Illness General Date patient seen: Feb 23, 2019 Reason for Hospitalization: Pain Present Illness HPI 83 year old male with multiple medical comorbidities including a fib on warfarin presented to [facility] [place] [facility] for evaluation of generalized body pain. Noted to have abnormal labs, lactic acidosis, hypercoag INR 10, c/o bilateral lower extremity pain and noted sacral decubitus. surgery called to evaluate and assist with care. patient seen, chart reviewed, patient examined. states he feels okay but has pain everywhere. pain 10/10 in heels, knee, hips, chest, arms. no n/v/f/c. Allergies: Coded Allergies: NORTRIPTYLINE (Verified Allergy, Intermediate, 07/17/15) NSAIDS (NON-STEROIDAL ANTI-INFLAMMA (Unverified Allergy, Unknown, 02/07/19 ) Medication History Scheduled Atorvastatin Calcium* (Lipitor*), 20 MG ORAL BEDTIME, (Reported) Docusate Sodium (Docusate Sodium), 100 MG ORAL DAILY, (Reported) Furosemide* (Lasix*), 40 MG ORAL DAILY, (Reported) Gabapentin* (Gabapentin*), 200 MG ORAL THREE TIMES A DAY, (Reported) Magnesium Hydroxide* (Milk Of Magnesia*), 30 ML ORAL DAILY, (Reported) Metoprolol Tartrate* (Metoprolol Tartrate*), 25 MG ORAL EVERY 12 HOURS, ( Reported) Mirtazapine* (Remeron*), 7.5 MG ORAL BEDTIME, (Reported) Multivitamin With Minerals (Multivitamins With Minerals*), 1 TAB ORAL DAILY, ( Reported) Omeprazole (Omeprazole), 20 MG ORAL DAILY, (Reported) Spironolactone* (Aldactone*), 25 MG ORAL DAILY, (Reported) Warfarin Sod* (Coumadin*), 6 MG ORAL DAILY, (Reported) Scheduled PRN Acetaminophen (Tylenol), 650 MG ORAL Q6H PRN for For Pain, (Reported) Hydrocodone Bit/Acetaminophen 5-325* ([place] 5-325*), 1 TAB ORAL Q4H PRN for For Pain, (Reported) Miscellaneous Medications Acetaminophen (Tylenol), 325 MG PO, (Reported) Benzocaine/Menthol (Cepacol Sore Throat Lozenge), 1 EACH MM, (Reported) Digoxin (Digitek), 125 MCG PO, (Reported) Discontinued Medications Gabapentin* (Gabapentin*), 100 MG ORAL BID, (Reported) Discontinued Reason: Medication dose changed Metoprolol Succinate* (Metoprolol Succinate*), 12.5 MG ORAL DAILY, (Reported) Discontinued Reason: Medication dose changed Patient History Limited by: age, medical condition History Provided By: Patient, Medical Record, PMD Healthcare decision maker Resuscitation status Do Not Intubate Advanced Directive on File Yes Past Medical/Surgical History Past Medical/Surgical History: (1) Abscess (2) Hyponatremia (3) Epistaxis (4) Subtherapeutic international normalized ratio (INR) (5) Atrial fibrillation (6) Renal insufficiency (7) Left lower lobe pneumonia (8) Cellulitis of right leg (9) Excessive anticoagulation Review of Systems Review of Symptoms General ROS: no weight loss or fever Psychological ROS: no depression or mood changes, no memory loss Ophthalmic ROS: no visual changes or eye irritation ENT ROS: no nasal congestion, hearing loss, dizziness Allergy and Immunology ROS: no allergic symptoms or urticaria Hematological and Lymphatic ROS: no swollen glands, unusual bleeding or bruising Endocrine ROS: no polyuria, polydipsia, weight changes, temperature intolerance Respiratory ROS: no cough, shortness of breath, or wheezing Cardiovascular ROS: no chest pain or dyspnea on exertion Gastrointestinal ROS: denies abdominal pain, bright red blood in stool. Musculoskeletal ROS: no myalgias or arthralgias Neurological ROS: no TIA or stroke symptoms Dermatological ROS: no new or changing skin lesions, rashes or pruritis Physical Exam Physical Exam General appearance: alert, cooperative, no distress, appears stated age Head: Normocephalic, without obvious abnormality, atraumatic Eyes: conjunctivae/corneas clear. PERRL, EOM's intact. Fundi benign Throat: Lips, mucosa, and tongue normal. Teeth and gums normal Neck: supple, symmetrical, trachea midline, no adenopathy, thyroid: not enlarged, symmetric, no tenderness/mass/nodules, no carotid bruit and no JVD Lungs: clear to auscultation bilaterally Heart: regular rate and rhythm, S1, S2 normal, no murmur, click, rub or gallop Abdomen: soft, non-tender. Bowel sounds normal. No masses, no organomegaly Extremities: extremities normal, atraumatic, no cyanosis or edema Pulses: decreased, chronic skin changes, c/o pain Skin: Skin color, texture, turgor normal. No rashes or lesions. sacral decubitus Neurologic: Grossly normal Last 24 Hour Vital Signs Date Time Temp Pulse Resp B/P (MAP) Pulse Ox O2 Delivery O2 Flow Rate FiO2 02/23/19 09:10 104 02/23/19 09:09 104 128/84 02/23/19 08:00 Nasal Cannula 2.0 02/23/19 08:00 97.6 104 20 128/84 (99) 91 02/23/19 08:00 4.0 02/23/19 07:55 85 02/23/19 04:00 97.8 100 20 100/55 (70) 96 02/23/19 04:00 Nasal Cannula 2.0 02/23/19 04:00 2.0 02/23/19 04:00 90 02/23/19 00:00 Nasal Cannula 2.0 02/23/19 00:00 75 02/23/19 00:00 2.0 02/23/19 00:00 97.8 103 20 101/69 (80) 98 02/22/19 21:39 120 125/67 02/22/19 20:00 2.0 02/22/19 20:00 97.0 113 20 100/68 (79) 98 02/22/19 20:00 Nasal Cannula 2.0 02/22/19 19:33 118 02/22/19 19:29 Nasal Cannula 2.0 02/22/19 19:15 97.1 104 18 127/63 98 Room Air 02/22/19 19:00 97.0 104 16 127/63 98 Room Air 02/22/19 18:05 97.0 113 16 02/22/19 17:50 97.0 100 16 02/22/19 17:45 97.0 97 16 02/22/19 17:40 97.0 95 18 02/22/19 17:35 97.0 99 18 02/22/19 16:55 97.0 98 21 87/63 98 Room Air 02/22/19 16:55 97.0 98 18 02/22/19 16:50 97.0 98 18 02/22/19 16:45 97.0 96 18 02/22/19 16:39 97.0 97 18 02/22/19 16:05 96.7 99 18 02/22/19 16:00 96.9 100 19 02/22/19 15:54 96.8 96 20 84/51 98 Room Air 02/22/19 15:00 96.8 97 17 80/63 97 Room Air 02/22/19 14:30 96.8 104 21 84/59 94 Room Air 02/22/19 12:53 96.8 104 19 84/58 94 Room Air 02/22/19 12:41 93.9 107 16 93/63 (73) 90 Room Air Intake and Output 02/22/19 02/23/19 19:00 07:00 Intake Total 836.7 ml Output Total 10 ml 300 ml Balance -10 ml 536.7 ml Intake IV Total 836.7 ml Output Urine Total 10 ml 300 ml # Voids 2 Laboratory Tests Test 02/22/19 13:24 02/22/19 18:13 02/23/19 03:30 02/23/19 03:40 White Blood Count 6.5 K/UL (4.8-10.8) 6.1 K/UL (4.8-10.8) Red Blood Count 3.74 M/UL (4.70-6.10) L 3.29 M/UL (4.70-6.10) L Hemoglobin 12.6 G/DL (14.2-18.0) L 11.4 G/DL (14.2-18.0) L Hematocrit 38.2 % (42.0-52.0) L 34.1 % (42.0-52.0) L Mean Corpuscular Volume 102 FL (80-99) H 104 FL (80-99) H Mean Corpuscular Hemoglobin 33.8 PG (27.0-31.0) H 34.6 PG (27.0-31.0) H Mean Corpuscular Hemoglobin Concent 33.1 G/DL (32.0-36.0) 33.4 G/DL (32.0-36.0) Red Cell Distribution Width 15.5 % (11.6-14.8) H 15.8 % (11.6-14.8) H Platelet Count 225 K/UL (150-450) 176 K/UL (150-450) Mean Platelet Volume 6.1 FL (6.5-10.1) L 6.4 FL (6.5-10.1) L Neutrophils (%) (Auto) 76.5 % (45.0-75.0) H 81.5 % (45.0-75.0) H Lymphocytes (%) (Auto) 13.9 % (20.0-45.0) L 7.6 % (20.0-45.0) L Monocytes (%) (Auto) 9.0 % (1.0-10.0) 10.5 % (1.0-10.0) H Eosinophils (%) (Auto) 0.2 % (0.0-3.0) 0.2 % (0.0-3.0) Basophils (%) (Auto) 0.4 % (0.0-2.0) 0.2 % (0.0-2.0) Prothrombin Time > 150.0 SEC (9.30-11.50) H Prothromb Time International Ratio > 10.0 (0.9-1.1) *H Activated Partial Thromboplast Time 65 SEC (23-33) H Urine Color Yellow Urine Appearance Clear Urine pH 5 (4.5-8.0) Urine Specific Van 1.015 (1.005-1.035) Urine Protein 1+ (NEGATIVE) H Urine Glucose (UA) Negative (NEGATIVE) Urine Ketones Negative (NEGATIVE) Urine Blood Negative (NEGATIVE) Urine Nitrite Negative (NEGATIVE) Urine Bilirubin Negative (NEGATIVE) Urine Urobilinogen 1 MG/DL (0.0-1.0) H Urine Leukocyte Esterase Negative (NEGATIVE) Urine RBC 0 /HPF (0 - 0) Urine WBC 0-2 /HPF (0 - 0) Urine Squamous Epithelial Cells Occasional /LPF Urine Bacteria Occasional /HPF (NONE) Sodium Level 134 MMOL/L (136-145) L 136 MMOL/L (136-145) Potassium Level 5.4 MMOL/L (3.5-5.1) H 5.4 MMOL/L (3.5-5.1) H Chloride Level 98 MMOL/L (98-107) 102 MMOL/L (98-107) Carbon Dioxide Level 23 MMOL/L (21-32) 24 MMOL/L (21-32) Anion Gap 13 mmol/L (5-15) 10 mmol/L (5-15) Blood Urea Nitrogen 49 mg/dL (7-18) H 51 mg/dL (7-18) H Creatinine 1.9 MG/DL (0.55-1.30) H 2.0 MG/DL (0.55-1.30) H Estimat Glomerular Filtration Rate mL/min (>60) mL/min (>60) Glucose Level 88 MG/DL (74-106) 58 MG/DL (74-106) L Lactic Acid Level 2.60 mmol/L (0.4-2.0) H 1.80 mmol/L (0.66-2.22) Calcium Level 8.5 MG/DL (8.5-10.1) 7.5 MG/DL (8.5-10.1) L Magnesium Level 2.3 MG/DL (1.8-2.4) Total Bilirubin 1.3 MG/DL (0.2-1.0) H Direct Bilirubin 0.9 MG/DL (0.0-0.3) H Aspartate Amino Transf (AST/SGOT) 45 U/L (15-37) H Alanine Aminotransferase (ALT/SGPT) 37 U/L (12-78) Alkaline Phosphatase 168 U/L (46-116) H Total Creatine Kinase 128 U/L (26-308) Troponin I 0.034 ng/mL (0.000-0.056) 0.036 ng/mL (0.000-0.056) Pro-B-Type Natriuretic Peptide 5061 pg/mL (0-125) H Total Protein 6.9 G/DL (6.4-8.2) Albumin 3.4 G/DL (3.4-5.0) Globulin 3.5 g/dL Albumin/Globulin Ratio 1.0 (1.0-2.7) Lipase 55 U/L (73-393) L Digoxin Level 1.9 NG/ML (0.5-2.0) Random Vancomycin Level 8.5 ug/mL Test 02/23/19 10:03 Prothrombin Time 59.0 SEC (9.30-11.50) H Prothromb Time International Ratio 6.1 (0.9-1.1) *H Microbiology Date/Time Source Procedure Growth Status 02/22/19 13:24 Nasal Nares - Final Complete 02/22/19 13:24 Nasal Nares - Final Complete Height (Feet): 5 Height (Inches): 5.00 Weight (Pounds): 132 Medications Current Medications Medications (Trade) Dose Ordered Sig/Nehemias Route PRN Reason Start Time Stop Time Status Last Admin Dose Admin Acetaminophen (Tylenol) 650 mg Q4H PRN ORAL MILD PAIN 02/22/19 20:00 03/24/19 19:59 Acetaminophen/ Hydrocodone Bitart ([place] 5/325) 1 tab Q4H PRN ORAL PAIN 4-10 02/22/19 20:00 03/01/19 19:59 02/23/19 07:30 Al Hydroxide/Mg Hydroxide (Mylanta) 30 ml Q4H PRN ORAL Indigestion 02/22/19 20:00 03/24/19 19:59 Atorvastatin Calcium (Lipitor) 20 mg BEDTIME ORAL 02/22/19 21:00 03/24/19 20:59 02/22/19 21:37 Dextrose (Dextrose 50%) 50 ml NEEDED PRN IV Hypoglycemia 02/23/19 09:50 03/25/19 09:49 02/23/19 10:11 Dextrose/Sodium Chloride 1,000 ml @ 100 mls/hr Q10H IV 02/23/19 10:00 03/25/19 09:59 02/23/19 10:11 Digoxin (Lanoxin) 0.125 mg DAILY ORAL 02/23/19 09:00 03/25/19 08:59 02/23/19 09:10 Docusate Sodium (Colace) 100 mg DAILY ORAL 02/23/19 09:00 03/25/19 08:59 Furosemide (Lasix) 40 mg DAILY ORAL 02/23/19 09:00 03/25/19 08:59 02/23/19 09:10 Gabapentin (Neurontin) 200 mg THREE TIMES A DAY ORAL 02/23/19 09:00 03/25/19 08:59 02/23/19 09:10 Magnesium Hydroxide (Mom) 30 ml DAILY ORAL 02/23/19 09:00 03/25/19 08:59 Metoprolol Tartrate (Lopressor) 25 mg EVERY 12 HOURS ORAL 02/22/19 21:00 03/24/19 20:59 02/23/19 09:09 Mirtazapine (Remeron) 7.5 mg BEDTIME ORAL 02/22/19 21:00 03/24/19 20:59 02/22/19 21:37 Pantoprazole (Protonix) 40 mg DAILY ORAL 02/23/19 09:00 03/25/19 08:59 02/23/19 09:10 Piperacillin Sod/ Tazobactam Sod 3.375 gm/Sodium Chloride 110 ml @ 27.5 mls/hr Q8HR IVPB 02/22/19 22:00 03/01/19 21:59 02/23/19 05:09 Spironolactone (Aldactone) 25 mg DAILY ORAL 02/23/19 09:00 03/25/19 08:59 02/23/19 09:10 Trimethoprim/ Sulfamethoxazole (Bactrim-DS) 1 tab TWICE A DAY ORAL 02/23/19 09:00 03/02/19 08:59 02/23/19 09:09 Vancomycin HCl (Vanco rx to dose) 1 ea DAILY PRN MISC Per rx protocol 02/22/19 20:00 03/24/19 19:59 Vancomycin HCl 500 mg/Dextrose 110 ml @ 110 mls/hr Q24H IVPB 02/23/19 14:00 02/28/19 13:59 Assessment/Plan Problem List: (1) Sacral decubitus ulcer Assessment & Plan: Pt presented on admission with partially opened DTPI Sacrum . Base of wound is maroon with partial opened wound L sacrum (L)2cm x (W)1.6cm that is is moist and viable. Pt verbalized tenderness to sacrum when minimally palpated.(L)7.5cm x (W)8.4cm. Non-blanching erythema without induration or fluctuance R ischium. Site is tender when minimally palpated.(L)4.5cm x (W)7cm. Haemosiderin noted to both lower ext. Dark brown/black area noted to lateral R tibia. (L)2.5cm x (W)1.8cm. scattered dry scabs noted to lateral and posterior R tibia. R heel is boggy with non-blanching erythema. tender when minimally palpated (L) 5.5cm x (W) 6.5cm. # 3 ulcers that are in close proximity and are each necrotic and dry noted to R lateral malleolus and R foot . Metatarsals both feet are clubbed and cold to touch. Necrotic dry ulcer noted to plantar R 1st metatarsal(L)2cm x (W)0.6cm. Dry necrotic ulcer noted plantar R foot (L)1cm X (W)0.8cm. Blood Blister noted to dorsal aspect of R 5th metatarsal.(L)0.3cm x (W)0.3cm. L Heel is boggy with non-blanching erythema with dry callus within affected area. L heel tender when minimally palpated. (L)5cm (W)5.8cm.Tender when minimally palpated. Pt is non-compliant with repositioning and has preference to head of bed being in high fowlers. Pt has been educated of risks vs benefits to relieving pressure off buttocks and ischial areas.Pt also complained of increase pain when attempted to off-load heels. Pt placed on an APM/BENNY Mattress overlay.Reinforced to pt increase risks for further skin breakdown secondary to multiple comorbidities. Tx.Plan:Cleanse sacral wound with Saline. Apply Therahoney. Apply Moisture Barrier Paste periwound. Cover with Optifoam drsg. Change every 3 days and prn. Apply Moisture Barrier Paste to R and L Ischium. Cover with Optifoam drsg. Change every 3 days and prn. Apply Betadine to Ulcers lateral R malleolus,Plantar R 1st metatarsal ,Plantar R foot.and R 5th metatarsal Daily. Apply Cavilon Skin Barrier to both heels. Cover each heel with Optifoam drsg. Change every 7 days and prn. APM/BENNY Mattress overlay. Reposition at least every 2hours or as tolerated. Off-load heels with pillow. ICD Codes: L89.159 - Pressure ulcer of sacral region, unspecified stage SNOMED: 281323518 (2) Cellulitis of right leg Assessment & Plan: patient presents with generalized body pain 10/10 c/o worse right heel pain poor peripheral pulses. left more palpable down to dp than right chronic skin changes poor perfusion US arterial and venous duplex ordered keep legs elevated with pillow heel protectors will follow with recs thank you ICD Codes: L03.115 - Cellulitis of right lower limb SNOMED: 574137070 (3) Subtherapeutic international normalized ratio (INR) Assessment & Plan: INR > 10 lft's US liver ICD Codes: R79.1 - Abnormal coagulation profile SNOMED: 407733013, [id number] Eric Woody Feb 23, 2019 12:45
[2019-02-23] MEDS: Vancomycin 500mg/D5W 110ml IVPB SCH ×2 (13:25)
--- NOTE | 2019-02-23 14:41 | NUR ---
NURSE NOTES:WOUND CARE NOTES:Pt presented on admission with partially opened DTPI Sacrum . Base of wound is maroon with partial opened wound L sacrum (L)2cm x (W)1.6cm that is is moist and viable. Pt verbalized tenderness to sacrum when minimally palpated.(L)7.5cm x (W)8.4cm. Non-blanching erythema without induration or fluctuance R ischium. Site is tender when minimally palpated.(L)4.5cm x (W)7cm. Haemosiderin noted to both lower ext. Dark brown/black area noted to lateral R tibia. (L)2.5cm x (W)1.8cm. scattered dry scabs noted to lateral and posterior R tibia. R heel is boggy with non-blanching erythema. tender when minimally palpated (L)5.5cm x (W) 6.5cm. # 3 ulcers that are in close proximity and are each necrotic and dry noted to R lateral malleolus and R foot . Metatarsals both feet are clubbed and cold to touch. Necrotic dry ulcer noted to plantar R 1st metatarsal(L)2cm x (W)0.6cm. Dry necrotic ulcer noted plantar R foot (L)1cm X (W)0.8cm. Blood Blister noted to dorsal aspect of R 5th metatarsal.(L)0.3cm x (W)0.3cm. L Heel is boggy with non-blanching erythema with dry callus within affected area. L heel tender when minimally palpated. (L)5cm (W)5.8cm.Tender when minimally palpated. Pt is non-compliant with repositioning and has preference to head of bed being in high fowlers. Pt has been educated of risks vs benefits to relieving pressure off buttocks and ischial areas.Pt also complained of increase pain when attempted to off-load heels. Pt placed on an APM/BENNY Mattress overlay.Reinforced to pt increase risks for further skin breakdown secondary to multiple comorbidities. Tx.Plan:Cleanse sacral wound with Saline. Apply Therahoney. Apply Moisture Barrier Paste periwound. Cover with Optifoam drsg. Change every 3 days and prn. Apply Moisture Barrier Paste to R and L Ischium. Cover with Optifoam drsg. Change every 3 days and prn. Apply Betadine to Ulcers lateral R malleolus,Plantar R 1st metatarsal,Plantar R foot.and R 5th metatarsal Daily. Apply Cavilon Skin Barrier to both heels. Cover each heel with Optifoam drsg. Change every 7 days and prn. APM/BENNY Mattress overlay. Reposition at least every 2hours or as tolerated. Off-load heels with pillow.
[2019-02-23] MEDS ORDERED: D5NS 1000ml IV ONE (14:42)
[2019-02-23] MEDS ORDERED: NS 275ml ONE (14:42)
[2019-02-23] MEDS ORDERED: Tubing IV Secondary IV ONE (14:42)
--- NOTE | 2019-02-23 16:57 | NUR ---
NURSE NOTES: Patient c/o chest pain and back pain. Gave PRN Kramer 5/325 PO PRN. Performed 12-lead EKG, results read atrial fibrillation HR 74 bpm, patient has Hx of chronic A-fib. Troponin negative x 2. C/o SOB on 4LNC with SpO2 of 85-96%, currently SpO2 96%. Dr. Shipman acknowledged. No new orders given at this time. Will continue to monitor patient.
--- NOTE | 2019-02-23 18:45 | NUR ---
NURSE NOTES: Patient pulled out Right forearm 20 g IV access. Applied direct pressure on site for 10 minutes until active bleeding no longer noted. Applied pressure gauze. Will continue to monitor patient.
--- NOTE | 2019-02-23 19:07 | NUR ---
NURSE NOTES: Received report from FARAZ Pinon. Patient is currently resting in bed and alert and oriented x1-2. Pt receiving O2 therapy 2L NC with no signs of symptoms of SOB noted. Breathing remains even and unlabored. Pt remains in controlled AFib on tele monitor. Condom catheter noted which remains draining to gravity, yellow urine noted in collection bag. Skin alterations noted.Dr Shipman aware of elevated K, no additional orders at this time. No IV access, pt accidentally dislodged IV catheter during AM shift, will start new access. Pt complaining of severe pain despite [place] 5 administration 3 hours prior. Pt is agitated. Will call MD for additional orders. Bed is in lowest position, brakes engaged, call light is kept within easy reach, side rails up x3 and bed alarm activated. Will continue to monitor patient.
--- NOTE | 2019-02-23 19:14 | NUR ---
HAND-OFF: Report given to FARAZ Ponce.
--- NOTE | 2019-02-23 19:25 | NUR ---
NURSE NOTES: Called MD for additional orders. Will await call back. Will continue to monitor.
--- NOTE | 2019-02-23 19:32 | NUR ---
NURSE NOTES: Pt linens noted to have blood spots from when pt accidentally dislodged his IV catheter. Pt refuses to allow linen change. Pt refuses to allow evening care including bath, oral care and gown change. Pt refuses to elevate legs despite edema. Pt educated on all of the aforementioned topics. Will offer care again later. Will continue to monitor.
--- NOTE | 2019-02-23 19:50 | NUR ---
NURSE NOTES: New IV catheter placed Right hand 24g IV catheter remains asymptomatic, patent and intact. Pt noted to be noncompliant and pulled out first attempt IV by withdrawing arm and flinging arm around. Not actively bleeding from first attempt site. Pressure applied and site monitored for further bleeding r/t elevated INR and PT Will continue to monitor.
--- NOTE | 2019-02-23 20:10 | NUR ---
NURSE NOTES: P200 mattress arrived from central supply. Patient moved on to P200 mattress without incident. Will continue to monitor.
--- NOTE | 2019-02-23 20:20 | NUR ---
NURSE NOTES: VS revealed a BP of 74/45 Dr Shipman paged for further orders. All other VS WNL and patient remains oriented at baseline. Will await call back, if further decline will call rapid response.
--- NOTE | 2019-02-23 20:22 | NUR ---
NURSE NOTES: Dr Shipman called back with further orders as follows: 1 L bolus of NS if SBP remains <90 then transfer to ICU for Levophed. Will carry out orders. Will continue to monitor.
[2019-02-23] MEDS: Atorvastatin 20mg tab ORAL SCH (20:42)
--- NOTE | 2019-02-23 21:30 | NUR ---
NURSE NOTES: Pt VS remains stable. BP now 139/63 and HR 86. Will continue to monitor.
--- NOTE | 2019-02-23 23:10 | NUR ---
NURSE NOTES: Pt complains of pain 8-9 notes pain is generalized, acute and aching in nature. VS as follows BP 130/73, HR 77 Temp 97.3 axillary and O2 saturation of 90% on 4L NC (pt has hx of COPD) Pt requests pain medication. Administered Ruf[place] 5 as prescribed. Will continue to monitor. Will reassess pain.
--- NOTE | 2019-02-23 23:23 | NUR ---
NURSE NOTES: Pt continues to refuse bed bath, oral care and linen change. Pt remains resting in bed and states he would like to sleep. Bed remains in lowest position, bed alarm activated, call light within reach, safety wheels locked and side rails up x3. Will continue with plan of care. Will continue to monitor.
[2019-02-24] VITALS: BP 130/73
[2019-02-24] MEDS: HYDROcodone/Acetamin 5/325 tab ORAL PRN ×4 (03:40→20:51)
[2019-02-24 04:00] VITALS: BP 143/96
--- NOTE | 2019-02-24 04:01 | NUR ---
NURSE NOTES: Pt refuses AM lab draw. Educated patient and explained risks and benefits of AM labs. Pt reluctantly agreed to AM lab draw. Pt then started trying to get out of bed. Pt reoriented and then educated on fall risk and safety. Pt agrees to stay in bed.Pt complains of pain 8/10 that is aching, constant and generalized in nature. current BP 143/92 HR 88. Pt administered [place] 5 as requested. Will continue to monitor. Will reassess pain.
--- NOTE | 2019-02-24 04:04 | NUR ---
NURSE NOTES: Pt complains of SOB. O2 saturation noted of 94% with a RR of 18. Pt refuses PRN Emmab stating "I dont think I will like it." Pt educated and reoriented. Pt continues to decline additional care. Pt remains stable at this time. No signs or symptoms of SOB, dyspnea or labored breathing noted. Will continue to monitor.
[2019-02-24] MEDS: D5NS 1,000 ML IV SCH (05:28)
[2019-02-24] MEDS: Piperacillin/Tazobactam 3.375 GM in NS 110 ML IVPB SCH ×3 (05:28→21:51)
[2019-02-24 05:41] LABS: BASOPHILS % (AUTO) 0.6 % (0.0-2.0); EOSINOPHILS % (AUTO) 0.2 % (0.0-3.0); HEMATOCRIT 36.3 % (42.0-52.0); HEMOGLOBIN 11.7 G/DL (14.2-18.0); LYMPHOCYTES % (AUTO) 14.6 % (20.0-45.0); MEAN CORPUSCULAR VOLUME 106 FL (80-99); MONOCYTES % (AUTO) 12.9 % (1.0-10.0); NEUTROPHILS % (AUTO) 71.8 % (45.0-75.0); PLATELET COUNT 150 K/UL (150-450); RED BLOOD COUNT 3.43 M/UL (4.70-6.10); RED CELL DISTRIBUTION WIDTH 16.3 % (11.6-14.8); WHITE BLOOD COUNT 6.8 K/UL (4.8-10.8)
--- NOTE | 2019-02-24 05:52 | NUR ---
NURSE NOTES: Pt complains of urgency. Pt allowed bladder scan to be completed. 3 bladder scans performed with the following results: 19mL, 0mL, 19mL. Condom catheter remains intact, total urine output during shift was 300mL. Will continue to monitor pt.
[2019-02-24 06:01] LABS: INR > 10.0 (0.9-1.1)
--- NOTE | 2019-02-24 06:14 | NUR ---
NURSE NOTES: Julio from lab called to report critical INR >10 and PT >100. Assessed pt for signs of bleeding. None noted at this time. Will notify MD. Will continue to monitor.
--- NOTE | 2019-02-24 06:34 | NUR ---
NURSE NOTES: Called Dr Shipman to report critical lab values. Will await call back. Will continue to monitor.
[2019-02-24 06:46] LABS: ANION GAP 12 mmol/L (5-15); BLOOD UREA NITROGEN 55 mg/dL (7-18); CALCIUM 7.1 MG/DL (8.5-10.1); CARBON DIOXIDE 21 MMOL/L (21-32); CHLORIDE 105 MMOL/L (98-107); CREATININE 2.3 MG/DL (0.55-1.30); POTASSIUM 4.7 MMOL/L (3.5-5.1); SODIUM 137 MMOL/L (136-145)
--- NOTE | 2019-02-24 07:08 | NUR ---
NURSE NOTES: Spoke with Dr Shipman who ordered STAT pt,ptt, INR Will carry out orders. Will continue to monitor.
--- NOTE | 2019-02-24 07:10 | NUR ---
HAND-OFF: Report given to FARAZ Clayton. Pt remains stable at this time.
--- NOTE | 2019-02-24 07:15 | NUR ---
NURSE NOTES: Report received from Anamika RUTH.Pt awake,confused on 4 L NC,o2 sat 94%, kept on saying i cant breath,but in no apparent resp distress,no signs of pain or discomfort,Afib on the monitor, with condom cath in placed,skin warm and dry with IV to RH and IVF D5 NS at 100 ml/hr,SR up x2 HOB elevated,bed l;ock in lowesr position,will continue with plans of care.
--- NOTE | 2019-02-24 07:45 | NUR ---
NURSE NOTES: Seen by Dr Shipman ,no orders given.
[2019-02-24 08:00] VITALS: BP 119/62
[2019-02-24] MEDS: Bactrim-DS 1 tab ORAL SCH (09:47)
[2019-02-24] MEDS: Digoxin 0.125mg tab ORAL SCH (09:48)
[2019-02-24] MEDS: Furosemide 40mg tab ORAL SCH (09:48)
[2019-02-24] MEDS: Docusate 100mg cap ORAL SCH (09:49)
[2019-02-24] MEDS: Spironolactone 25mg tab ORAL SCH (09:49)
[2019-02-24] MEDS: Milk of Magnesia 30ml Ud ORAL SCH ×2 (09:50→09:57)
[2019-02-24 10:31] LABS: PARTIAL THROMBOPLASTIN TIME 58 SEC (23-33)
[2019-02-24 10:38] LABS: INR > 10.0 (0.9-1.1)
[2019-02-24 12:00] VITALS: BP 105/53
--- NOTE | 2019-02-24 12:00 | NUR ---
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
--- NOTE | 2019-02-24 13:16 | General Progress Note ---
Assessment/Plan Assessment/Plan: coagulopathy sepsis tox met encephalopathy PAF advanced age PLAN check INR in am FFP today Antibiotics IV hydration - dc on lasix and aldactone monitor for change dc to snf when safe impression, plan, and exam edited and reviewed in detail care discussed with RN Subjective ROS Limited/Unobtainable: Yes Allergies: Coded Allergies: NORTRIPTYLINE (Verified Allergy, Intermediate, 07/17/15) NSAIDS (NON-STEROIDAL ANTI-INFLAMMA (Unverified Allergy, Unknown, 02/07/19 ) Subjective still with coagulopathy off coumadin and heparin no bleeding noted hypotension now better Objective Last 24 Hour Vital Signs Date Time Temp Pulse Resp B/P (MAP) Pulse Ox O2 Delivery O2 Flow Rate FiO2 02/24/19 12:00 4.0 02/24/19 12:00 Nasal Cannula 4.0 02/24/19 12:00 96.4 80 20 105/53 (70) 100 02/24/19 09:49 82 119/62 02/24/19 09:48 82 02/24/19 08:00 4.0 02/24/19 08:00 83 02/24/19 08:00 96.0 82 19 119/62 (81) 92 02/24/19 08:00 Nasal Cannula 4.0 02/24/19 04:00 Nasal Cannula 4.0 02/24/19 04:00 97.4 88 20 143/96 (112) 94 02/24/19 04:00 4.0 02/24/19 03:45 75 02/24/19 00:00 Nasal Cannula 4.0 02/24/19 00:00 98.1 77 22 130/73 (92) 94 02/24/19 00:00 72 02/23/19 21:30 97.1 86 20 139/63 (88) 96 02/23/19 20:00 4.0 02/23/19 20:00 97.3 90 20 74/45 (55) 98 02/23/19 20:00 Nasal Cannula 4.0 02/23/19 20:00 76 02/23/19 16:00 Nasal Cannula 2.0 02/23/19 16:00 97.5 82 17 91/56 (68) 97 02/23/19 16:00 97.5 82 17 156/81 (106) 97 02/23/19 16:00 4.0 02/23/19 15:42 75 Intake and Output 02/23/19 02/24/19 19:00 07:00 Intake Total 500 ml 2081.5 ml Output Total 150 ml 300 ml Balance 350 ml 1781.5 ml Intake Oral 500 ml 64 ml IV Total 2017.5 ml Output Urine Total 150 ml 300 ml # Voids 2 Laboratory Tests 02/24/19 03:41: White Blood Count 6.8, Red Blood Count 3.43L, Hemoglobin 11.7L, Hematocrit 36.3L , Mean Corpuscular Volume 106H, Mean Corpuscular Hemoglobin 34.2H, Mean Corpuscular Hemoglobin Concent 32.2, Red Cell Distribution Width 16.3H, Platelet Count 150, Mean Platelet Volume 7.1, Neutrophils (%) (Auto) 71.8, Lymphocytes (%) (Auto) 14.6L, Monocytes (%) (Auto) 12.9H, Eosinophils (%) (Auto ) 0.2, Basophils (%) (Auto) 0.6, Prothrombin Time > 100.0H, Prothromb Time International Ratio > 10.0*H, Sodium Level 137, Potassium Level 4.7, Chloride Level 105, Carbon Dioxide Level 21, Anion Gap 12, Blood Urea Nitrogen 55H, Creatinine 2.3H, Estimat Glomerular Filtration Rate , Glucose Level 107H, Calcium Level 7.1L 02/24/19 09:10: Prothrombin Time > 100.0H, Prothromb Time International Ratio > 10.0*H, Activated Partial Thromboplast Time 58H Height (Feet): 5 Height (Inches): 5.00 Weight (Pounds): 132 Objective WDWN chronically ill clear breath sounds bilaterally without rhonchi or wheeze [id number] without MRG NABS nontender no HSM no CC chronic skin changes nonfocal Dylan Shipman MD Feb 24, 2019 13:16
[2019-02-24] MEDS: Vancomycin 500mg/D5W 110ml IVPB SCH ×2 (13:40)
[2019-02-24] MEDS ORDERED: NS 275ml ONE (15:30)
[2019-02-24] MEDS ORDERED: D5NS 1000ml IV ONE (15:30)
[2019-02-24 16:00] VITALS: BP 97/55
--- NOTE | 2019-02-24 19:30 | NUR ---
HAND-OFF: Report given to Kenny Abreu RN..
--- NOTE | 2019-02-24 19:46 | NUR ---
NURSE NOTES: Called Dr Shipman re Labs PT >100 and INR >10,still awaiting return of call Addendum: 02/24/19 at 1950 by CANDICE JOEL RN Wrong time documented.called Dr Shipman at 1040
--- NOTE | 2019-02-24 19:55 | NUR ---
NURSE NOTES: LE; PATIENT ALERT, ORIENTED X2 TO NAME AND PLACE, CONFUSED TO TIME AND SITUATION, ON O2 4LPM VIA NC, O2 SATURATION 92% NOTED, HOB 30 DEGREES AND ASPIRATION PRECAUTION, ABDOMEN SOFT, NO BM STATUS, HEART RATE 80'S/MIN A-FIB NOTED, INCONTINENT URINE, DARK ANNALEE COLOR URINE OUTED, PERIPHERAL LINE TO LEFT FORE ARM, INTACT AND PATENT, RIGHT AC PREVIOUS IV SITE BLOOD OOZING STATUS THAT SECURED AND ELEVATED, ON P200 BED, MADE LOWER BED POSITION, ON BED ALARM AND LOCKED, PROVIDED CALL LIGHT WITHIN REACH, CONTINUE PLAN OF CARE.
--- NOTE | 2019-02-24 19:55 | Surgery Progress Note ---
Surgery Progress Note Subjective Additional Comments ill appearing coags abnormal pending US states he feels unwell overall Objective Last 24 Hour Vital Signs Date Time Temp Pulse Resp B/P (MAP) Pulse Ox O2 Delivery O2 Flow Rate FiO2 02/24/19 16:00 97.2 91 21 97/55 (69) 100 02/24/19 16:00 Nasal Cannula 4.0 02/24/19 16:00 93 02/24/19 12:00 4.0 02/24/19 12:00 Nasal Cannula 4.0 02/24/19 12:00 73 02/24/19 12:00 96.4 80 20 105/53 (70) 100 02/24/19 09:49 82 119/62 02/24/19 09:48 82 02/24/19 08:00 4.0 02/24/19 08:00 83 02/24/19 08:00 96.0 82 19 119/62 (81) 92 02/24/19 08:00 Nasal Cannula 4.0 02/24/19 04:00 Nasal Cannula 4.0 02/24/19 04:00 97.4 88 20 143/96 (112) 94 02/24/19 04:00 4.0 02/24/19 03:45 75 02/24/19 00:00 Nasal Cannula 4.0 02/24/19 00:00 98.1 77 22 130/73 (92) 94 02/24/19 00:00 72 02/23/19 21:30 97.1 86 20 139/63 (88) 96 02/23/19 20:00 4.0 02/23/19 20:00 97.3 90 20 74/45 (55) 98 02/23/19 20:00 Nasal Cannula 4.0 02/23/19 20:00 76 I&O Intake and Output 02/23/19 02/24/19 19:00 07:00 Intake Total 500 ml 2081.5 ml Output Total 150 ml 300 ml Balance 350 ml 1781.5 ml Intake Oral 500 ml 64 ml IV Total 2017.5 ml Output Urine Total 150 ml 300 ml # Voids 2 Dressing: saturated Wound: other Drains: other Cardiovascular: RSR Respiratory: clear Abdomen: soft, non-tender, present bowel sounds Extremities: no cyanosis, other Laboratory Tests Test 02/24/19 03:41 02/24/19 09:10 White Blood Count 6.8 K/UL (4.8-10.8) Red Blood Count 3.43 M/UL (4.70-6.10) L Hemoglobin 11.7 G/DL (14.2-18.0) L Hematocrit 36.3 % (42.0-52.0) L Mean Corpuscular Volume 106 FL (80-99) H Mean Corpuscular Hemoglobin 34.2 PG (27.0-31.0) H Mean Corpuscular Hemoglobin Concent 32.2 G/DL (32.0-36.0) Red Cell Distribution Width 16.3 % (11.6-14.8) H Platelet Count 150 K/UL (150-450) Mean Platelet Volume 7.1 FL (6.5-10.1) Neutrophils (%) (Auto) 71.8 % (45.0-75.0) Lymphocytes (%) (Auto) 14.6 % (20.0-45.0) L Monocytes (%) (Auto) 12.9 % (1.0-10.0) H Eosinophils (%) (Auto) 0.2 % (0.0-3.0) Basophils (%) (Auto) 0.6 % (0.0-2.0) Prothrombin Time > 100.0 SEC (9.30-11.50) H > 100.0 SEC (9.30-11.50) H Prothromb Time International Ratio > 10.0 (0.9-1.1) *H > 10.0 (0.9-1.1) *H Sodium Level 137 MMOL/L (136-145) Potassium Level 4.7 MMOL/L (3.5-5.1) Chloride Level 105 MMOL/L (98-107) Carbon Dioxide Level 21 MMOL/L (21-32) Anion Gap 12 mmol/L (5-15) Blood Urea Nitrogen 55 mg/dL (7-18) H Creatinine 2.3 MG/DL (0.55-1.30) H Estimat Glomerular Filtration Rate mL/min (>60) Glucose Level 107 MG/DL (74-106) H Calcium Level 7.1 MG/DL (8.5-10.1) L Activated Partial Thromboplast Time 58 SEC (23-33) H Plan Problems: (1) Sacral decubitus ulcer Assessment & Plan: Pt presented on admission with partially opened DTPI Sacrum . Base of wound is maroon with partial opened wound L sacrum (L)2cm x (W)1.6cm that is is moist and viable. Pt verbalized tenderness to sacrum when minimally palpated.(L)7.5cm x (W)8.4cm. Non-blanching erythema without induration or fluctuance R ischium. Site is tender when minimally palpated.(L)4.5cm x (W)7cm. Haemosiderin noted to both lower ext. Dark brown/black area noted to lateral R tibia. (L)2.5cm x (W)1.8cm. scattered dry scabs noted to lateral and posterior R tibia. R heel is boggy with non-blanching erythema. tender when minimally palpated (L) 5.5cm x (W) 6.5cm. # 3 ulcers that are in close proximity and are each necrotic and dry noted to R lateral malleolus and R foot . Metatarsals both feet are clubbed and cold to touch. Necrotic dry ulcer noted to plantar R 1st metatarsal(L)2cm x (W)0.6cm. Dry necrotic ulcer noted plantar R foot (L)1cm X (W)0.8cm. Blood Blister noted to dorsal aspect of R 5th metatarsal.(L)0.3cm x (W)0.3cm. L Heel is boggy with non-blanching erythema with dry callus within affected area. L heel tender when minimally palpated. (L)5cm (W)5.8cm.Tender when minimally palpated. Pt is non-compliant with repositioning and has preference to head of bed being in high fowlers. Pt has been educated of risks vs benefits to relieving pressure off buttocks and ischial areas.Pt also complained of increase pain when attempted to off-load heels. Pt placed on an APM/BENNY Mattress overlay.Reinforced to pt increase risks for further skin breakdown secondary to multiple comorbidities. Tx.Plan:Cleanse sacral wound with Saline. Apply Therahoney. Apply Moisture Barrier Paste periwound. Cover with Optifoam drsg. Change every 3 days and prn. Apply Moisture Barrier Paste to R and L Ischium. Cover with Optifoam drsg. Change every 3 days and prn. Apply Betadine to Ulcers lateral R malleolus,Plantar R 1st metatarsal ,Plantar R foot.and R 5th metatarsal Daily. Apply Cavilon Skin Barrier to both heels. Cover each heel with Optifoam drsg. Change every 7 days and prn. APM/BENNY Mattress overlay. Reposition at least every 2hours or as tolerated. Off-load heels with pillow. (2) Cellulitis of right leg Assessment & Plan: patient presents with generalized body pain 10/10 c/o worse right heel pain poor peripheral pulses. left more palpable down to dp than right chronic skin changes poor perfusion US arterial and venous duplex ordered keep legs elevated with pillow heel protectors will follow with recs thank you (3) Subtherapeutic international normalized ratio (INR) Assessment & Plan: INR > 10 lft's US liver Eric Woody Feb 24, 2019 19:55
[2019-02-24 20:00] VITALS: BP 139/86
[2019-02-24] MEDS: Atorvastatin 20mg tab ORAL SCH (20:45)
--- NOTE | 2019-02-24 23:15 | NUR ---
HAND-OFF: Report given to FARAZ ARGUELLO.
--- NOTE | 2019-02-24 23:17 | NUR ---
NURSE NOTES: Received pt from FARAZ Cox. Pt is AAOX0, vss, with no acute distress. Pt is cooperative and well groomed. Pt is on cardiac sonographer with IV Left upper 20g. Skin issues noted. Bed at its lowest position, call light in reach and x3 bed rails are up.
[2019-02-25] VITALS: BP 83/44
[2019-02-25] MEDS: HYDROcodone/Acetamin 5/325 tab ORAL PRN ×2 (02:16→09:16)
[2019-02-25 04:00] VITALS: BP 163/89
[2019-02-25] MEDS: Piperacillin/Tazobactam 3.375 GM in NS 110 ML IVPB SCH ×2 (06:16→14:00)
--- NOTE | 2019-02-25 07:05 | NUR ---
HAND-OFF: Report given to FARAZ Hills.
--- NOTE | 2019-02-25 07:49 | NUR ---
NURSE NOTES: Pt in bed in low position, call light w/in reach, pt Ox2 non-compliant, continues to remove oxygen mask and sometime desaturates, pt refuses to wear condom cath, will need to be cleaned, pt will need to be turned, pt complains of pain 07/30 and is requesting medication, bed alarm on, pt high risk of fall, report was given about skin issues, at the present time no signs and symptoms of distress or SOB. Addendum: 02/25/19 at 0821 by GABI IVERSON RN Pt is now NPO for [facility]AN[facility] SNELL
[2019-02-25 08:00] VITALS: BP 133/61
--- NOTE | 2019-02-25 08:35 | General Progress Note ---
Assessment/Plan Assessment/Plan: coagulopathy sepsis tox met encephalopathy PAF advanced age PLAN check INR today FFP given Antibiotics noted on lasix and aldactone monitor for change dc to snf if INR within range impression, plan, and exam edited and reviewed in detail care discussed with RN Subjective Allergies: Coded Allergies: NORTRIPTYLINE (Verified Allergy, Intermediate, 07/17/15) NSAIDS (NON-STEROIDAL ANTI-INFLAMMA (Unverified Allergy, Unknown, 02/07/19 ) Subjective still with coagulopathy off coumadin and heparin no bleeding noted hypotension resolved Objective Last 24 Hour Vital Signs Date Time Temp Pulse Resp B/P (MAP) Pulse Ox O2 Delivery O2 Flow Rate FiO2 02/25/19 07:53 Nasal Cannula 4.0 02/25/19 07:38 97.6 02/25/19 07:13 Venturi Mask 12.0 50 02/25/19 04:00 Nasal Cannula 4.0 02/25/19 04:00 97.6 99 22 163/89 (113) 94 02/25/19 04:00 98 02/25/19 00:00 Nasal Cannula 4.0 02/25/19 00:00 97.8 89 20 83/44 (57) 96 02/25/19 00:00 86 02/24/19 20:44 87 139/86 02/24/19 20:00 88 02/24/19 20:00 97.4 87 22 139/86 (103) 93 02/24/19 20:00 Nasal Cannula 4.0 02/24/19 16:00 97.2 91 21 97/55 (69) 100 02/24/19 16:00 Nasal Cannula 4.0 02/24/19 16:00 93 02/24/19 12:00 4.0 02/24/19 12:00 Nasal Cannula 4.0 02/24/19 12:00 73 02/24/19 12:00 96.4 80 20 105/53 (70) 100 02/24/19 09:49 82 119/62 02/24/19 09:48 82 Intake and Output 02/24/19 02/25/19 19:00 07:00 Intake Total 480 ml 240 ml Output Total 250 ml Balance 230 ml 240 ml Intake Oral 480 ml 240 ml Output Urine Total 250 ml # Voids 2 3 Laboratory Tests 02/24/19 09:10: Prothrombin Time > 100.0H, Prothromb Time International Ratio > 10.0*H, Activated Partial Thromboplast Time 58H Height (Feet): 5 Height (Inches): 5.00 Weight (Pounds): 142 Objective WDWN chronically ill clear breath sounds bilaterally without rhonchi or wheeze [id number] without MRG NABS nontender no HSM no CC chronic skin changes nonfocal Dylan Shipman MD Feb 25, 2019 08:35
--- NOTE | 2019-02-25 08:42 | NUR ---
CHEST X-RAY DONE.-P.DYE
--- NOTE | 2019-02-25 09:05 | Diagnostic Imaging Report ---
Indication: Leg pain Technique: Grayscale and duplex images of the bilateral lower extremity veins Comparison: none Findings: Bilaterally, grayscale and duplex images demonstrate no evidence of intraluminal thrombus. Normal phasic Doppler waveforms, demonstrating normal augmentation response and no evidence of valvular insufficiency. Note that the left popliteal vein could not be well-visualized, due to patient inability to move his leg. Impression: Negative for lower extremity deep venous thrombosis Note limited evaluation of the left popliteal vein, however
[2019-02-25] MEDS: Docusate 100mg cap ORAL SCH (09:15)
[2019-02-25] MEDS: Digoxin 0.125mg tab ORAL SCH (09:15)
[2019-02-25] MEDS: Furosemide 40mg tab ORAL SCH (09:15)
[2019-02-25] MEDS: Spironolactone 25mg tab ORAL SCH (09:15)
[2019-02-25 09:41] LABS: HEMATOCRIT 35.7 % (42.0-52.0); HEMOGLOBIN 11.7 G/DL (14.2-18.0); MEAN CORPUSCULAR VOLUME 106 FL (80-99); PLATELET COUNT 136 K/UL (150-450); RED BLOOD COUNT 3.38 M/UL (4.70-6.10); RED CELL DISTRIBUTION WIDTH 16.8 % (11.6-14.8); WHITE BLOOD COUNT 8.9 K/UL (4.8-10.8)
[2019-02-25 10:09] LABS: INR > 10.0 (0.9-1.1); PARTIAL THROMBOPLASTIN TIME 64 SEC (23-33)
--- NOTE | 2019-02-25 10:19 | Diagnostic Imaging Report ---
Indication: Dyspnea Technique: One view of the chest Comparison: 02/22/2019 Findings: Interim development of a moderate right pleural effusion. There is increased hazy parenchymal opacities throughout the left lung. There is also some hazy parenchymal opacity at the right lung base which is increased. The heart remains enlarged. Patient is rotated to the right Impression: Moderate right pleural effusion, new since previous exam exam 02/22/2019 Increasing bilateral infiltrates versus edema Stable cardiomegaly
[2019-02-25 10:24] LABS: ALANINE AMINOTRANSFERASE 125 U/L (12-78); ALBUMIN 2.8 G/DL (3.4-5.0); ALBUMIN/GLOBULIN RATIO 0.8 (1.0-2.7); ALKALINE PHOSPHATASE 111 U/L (46-116); AMYLASE 46 U/L (25-115); ANION GAP 14 mmol/L (5-15); ASPARTATE AMINO TRANSFERASE 192 U/L (15-37); BILIRUBIN,TOTAL 3.2 MG/DL (0.2-1.0); BLOOD UREA NITROGEN 54 mg/dL (7-18); CALCIUM 7.5 MG/DL (8.5-10.1); CARBON DIOXIDE 18 MMOL/L (21-32); CHLORIDE 107 MMOL/L (98-107); CREATININE 2.1 MG/DL (0.55-1.30); POTASSIUM 5.1 MMOL/L (3.5-5.1); SODIUM 139 MMOL/L (136-145)
[2019-02-25 10:25] LABS: BILIRUBIN,DIRECT 2.1 MG/DL (0.0-0.3)
--- NOTE | 2019-02-25 11:14 | NUR ---
NURSE NOTES: Pt refused ABD US
--- NOTE | 2019-02-25 11:36 | NUR ---
*-* INSURANCE *-* ALL CLINICALS HAVE BEEN FAXED TO: [employer] ([facility]) [phone] Work [phone] Work Fax
[2019-02-25 12:00] VITALS: BP 120/51
--- NOTE | 2019-02-25 12:30 | History and Physical Report ---
DATE OF ADMISSION: 02/22/2019 REASON FOR ADMISSION: Sepsis, coagulopathy. HISTORY OF PRESENT ILLNESS: The patient is an 83-year-old male who has been fairly debilitated in the nursing facility. The patient was noted to have significantly elevated INR and was brought in by paramedics. The patient also noted to be somewhat hypoxemic. The patient is a poor historian, unable to give any history, but per DPOA, the patient is a Do Not Resuscitate. The patient is being admitted due to hypotension and coagulopathy. The patient is not transferable. PAST MEDICAL HISTORY: Notable for stroke, CHF, depression, anxiety, hypertension, GERD, diverticulitis, dementia, valvular heart disease. MEDICATIONS: Reviewed. ALLERGIES: Reviewed. SOCIAL HISTORY: Resides for care home at the halfway facility. FAMILY HISTORY: Not available. REVIEW OF SYSTEMS: Unobtainable. PHYSICAL EXAMINATION: GENERAL: The patient is an ill-appearing male. VITAL SIGNS: Borderline blood pressure respiratory rate 20, sats 98% on room air. HEENT: Negative. NECK: Supple. No lymphadenopathy. LUNGS: Moderate breath sounds. Scattered rhonchi. CARDIAC: S1 and S2. Slightly distant without murmurs, rubs, gallops. ABDOMEN: Soft, nontender, nondistended. EXTREMITIES: No cyanosis or clubbing. The patient has some erythema and edema. NEUROLOGIC: Confused and contracted. LABORATORY DATA: Reviewed. Chest x-ray with concern for pneumonia. White cell count 3.5, hematocrit 38, and platelets of 225. Chemistries reviewed. Potassium 5.4, BUN 49, creatinine 1.9, albumin is 3.4, INR is elevated at greater than 10. IMPRESSION: 1. Significant coagulopathy. 2. Chronic renal failure. 3. Lactic acidemia. 4. Toxic metabolic encephalopathy. 5. Possible sepsis. 6. Hypotension. RECOMMENDATIONS: Supportive care. IV hydration with caution. IV antibiotics. ID evaluation. FFP and vitamin K. Monitor INR. Strict bed rest. We will follow clinically for change and transfer to [place] if stable. Dylan Shipman M.D. DR: Juan JOB#: [id number] CC: JENNIFER
[2019-02-25] MEDS: Vancomycin 500mg/D5W 110ml IVPB SCH ×2 (13:19)
--- NOTE | 2019-02-25 14:27 | NUR ---
NURSING STRINGS TEACHER NOTE: STATUS POST CODE BLUE, PRONOUNCED BY DR. BRYAN
[2019-02-25] MEDS ORDERED: Vancomycin 1gm in D5W 275ml IVPB SCH (15:00)
--- NOTE | 2019-02-25 15:09 | NUR ---
NURSE NOTES: Approximately 1400hrs pt was soiled, COAL HANDLER and primary nurse went to clean the pt, while cleaning the pt he had a big bowel movement and passed out, I called a Rapid response, no cpr was given, during this response. One IV push was given. 15min later the pt coded with no respirations and I called for a code blue, team came in and attempted cpr. Meds were pushed, Md drilled into right leg for better IV. After several attempts Md called it time.
--- NOTE | 2019-02-25 15:15 | NUR ---
HEALTH RESEARCHERGUN STOCK CHECKER 83 YO MALE BIBA FROM [facility] CONV TO ER CC GENERALIZED PAIN SI: HYPOXIA,CELLULITIS T. 96.8 HR 107 RR 16 B/P 93/63 ESR 33 NA 134 K 5.4 BUN 49 CR 1.9 LACTID ACID 2.60 ALK PHOS 165 BNP 5061 PT 150 INR >10.0 PTT 65 NC 2L O2 SAT @ 98% IS: VANCO IV LEVAQUIN IV CEFEPIME IV ADMITTED TO STEP DOWN STEP DOWN
--- NOTE | 2019-02-25 16:08 | Surgery Progress Note ---
Surgery Progress Note Subjective Additional Comments late entry patient had large BM with movement. soon after became agitated then unresponsive. went asystolic and passed Objective Last 24 Hour Vital Signs Date Time Temp Pulse Resp B/P (MAP) Pulse Ox O2 Delivery O2 Flow Rate FiO2 02/25/19 12:00 96.3 83 22 120/51 (74) 97 02/25/19 11:41 Nasal Cannula 4.0 02/25/19 10:03 95.7 02/25/19 09:15 98 133/61 02/25/19 09:15 98 02/25/19 08:00 95.7 98 24 133/61 (85) 93 02/25/19 07:53 Nasal Cannula 4.0 02/25/19 07:42 88 02/25/19 07:13 Venturi Mask 12.0 50 02/25/19 04:00 Nasal Cannula 4.0 02/25/19 04:00 97.6 99 22 163/89 (113) 94 02/25/19 04:00 98 02/25/19 00:00 Nasal Cannula 4.0 02/25/19 00:00 97.8 89 20 83/44 (57) 96 02/25/19 00:00 86 02/24/19 20:44 87 139/86 02/24/19 20:00 88 02/24/19 20:00 97.4 87 22 139/86 (103) 93 02/24/19 20:00 Nasal Cannula 4.0 I&O Intake and Output 02/24/19 02/25/19 19:00 07:00 Intake Total 480 ml 240 ml Output Total 250 ml Balance 230 ml 240 ml Intake Oral 480 ml 240 ml Output Urine Total 250 ml # Voids 2 3 Dressing: other Wound: other Drains: other Cardiovascular: other Respiratory: other Abdomen: other Extremities: other Laboratory Tests Test 02/25/19 08:00 02/25/19 12:50 White Blood Count 8.9 K/UL (4.8-10.8) Red Blood Count 3.38 M/UL (4.70-6.10) L Hemoglobin 11.7 G/DL (14.2-18.0) L Hematocrit 35.7 % (42.0-52.0) L Mean Corpuscular Volume 106 FL (80-99) H Mean Corpuscular Hemoglobin 34.7 PG (27.0-31.0) H Mean Corpuscular Hemoglobin Concent 32.9 G/DL (32.0-36.0) Red Cell Distribution Width 16.8 % (11.6-14.8) H Platelet Count 136 K/UL (150-450) L Mean Platelet Volume 6.7 FL (6.5-10.1) Neutrophils (%) (Auto) % (45.0-75.0) Lymphocytes (%) (Auto) % (20.0-45.0) Monocytes (%) (Auto) % (1.0-10.0) Eosinophils (%) (Auto) % (0.0-3.0) Basophils (%) (Auto) % (0.0-2.0) Differential Total Cells Counted 100 Neutrophils % (Manual) 86 % (45-75) H Lymphocytes % (Manual) 6 % (20-45) L Monocytes % (Manual) 8 % (1-10) Eosinophils % (Manual) 0 % (0-3) Basophils % (Manual) 0 % (0-2) Band Neutrophils 0 % (0-8) Platelet Estimate Decreased L Platelet Morphology Normal Polychromasia 1+ Hypochromasia 1+ Anisocytosis 1+ Macrocytosis 1+ Erythrocyte Sedimentation Rate 33 MM/HR (0-20) H Prothrombin Time > 150.0 SEC (9.30-11.50) H Prothromb Time International Ratio > 10.0 (0.9-1.1) *H Activated Partial Thromboplast Time 64 SEC (23-33) H Sodium Level 139 MMOL/L (136-145) Potassium Level 5.1 MMOL/L (3.5-5.1) Chloride Level 107 MMOL/L (98-107) Carbon Dioxide Level 18 MMOL/L (21-32) L Anion Gap 14 mmol/L (5-15) Blood Urea Nitrogen 54 mg/dL (7-18) H Creatinine 2.1 MG/DL (0.55-1.30) H Estimat Glomerular Filtration Rate mL/min (>60) Glucose Level 79 MG/DL (74-106) Calcium Level 7.5 MG/DL (8.5-10.1) L Total Bilirubin 3.2 MG/DL (0.2-1.0) H Direct Bilirubin 2.1 MG/DL (0.0-0.3) H Aspartate Amino Transf (AST/SGOT) 192 U/L (15-37) H Alanine Aminotransferase (ALT/SGPT) 125 U/L (12-78) H Alkaline Phosphatase 111 U/L (46-116) C-Reactive Protein, Quantitative 6.6 mg/dL (0.00-0.90) H Total Protein 6.3 G/DL (6.4-8.2) L Albumin 2.8 G/DL (3.4-5.0) L Globulin 3.5 g/dL Albumin/Globulin Ratio 0.8 (1.0-2.7) L Amylase Level 46 U/L (25-115) Lipase 60 U/L (73-393) L Digoxin Level 1.2 NG/ML (0.5-2.0) Vancomycin Level Trough 10.6 ug/mL (5.0-12.0) Plan Problems: (1) Sacral decubitus ulcer Assessment & Plan: Pt presented on admission with partially opened DTPI Sacrum . Base of wound is maroon with partial opened wound L sacrum (L)2cm x (W)1.6cm that is is moist and viable. Pt verbalized tenderness to sacrum when minimally palpated.(L)7.5cm x (W)8.4cm. Non-blanching erythema without induration or fluctuance R ischium. Site is tender when minimally palpated.(L)4.5cm x (W)7cm. Haemosiderin noted to both lower ext. Dark brown/black area noted to lateral R tibia. (L)2.5cm x (W)1.8cm. scattered dry scabs noted to lateral and posterior R tibia. R heel is boggy with non-blanching erythema. tender when minimally palpated (L) 5.5cm x (W) 6.5cm. # 3 ulcers that are in close proximity and are each necrotic and dry noted to R lateral malleolus and R foot . Metatarsals both feet are clubbed and cold to touch. Necrotic dry ulcer noted to plantar R 1st metatarsal(L)2cm x (W)0.6cm. Dry necrotic ulcer noted plantar R foot (L)1cm X (W)0.8cm. Blood Blister noted to dorsal aspect of R 5th metatarsal.(L)0.3cm x (W)0.3cm. L Heel is boggy with non-blanching erythema with dry callus within affected area. L heel tender when minimally palpated. (L)5cm (W)5.8cm.Tender when minimally palpated. Pt is non-compliant with repositioning and has preference to head of bed being in high fowlers. Pt has been educated of risks vs benefits to relieving pressure off buttocks and ischial areas.Pt also complained of increase pain when attempted to off-load heels. Pt placed on an APM/BENNY Mattress overlay.Reinforced to pt increase risks for further skin breakdown secondary to multiple comorbidities. Tx.Plan:Cleanse sacral wound with Saline. Apply Therahoney. Apply Moisture Barrier Paste periwound. Cover with Optifoam drsg. Change every 3 days and prn. Apply Moisture Barrier Paste to R and L Ischium. Cover with Optifoam drsg. Change every 3 days and prn. Apply Betadine to Ulcers lateral R malleolus,Plantar R 1st metatarsal ,Plantar R foot.and R 5th metatarsal Daily. Apply Cavilon Skin Barrier to both heels. Cover each heel with Optifoam drsg. Change every 7 days and prn. APM/BENNY Mattress overlay. Reposition at least every 2hours or as tolerated. Off-load heels with pillow. (2) Cellulitis of right leg Assessment & Plan: patient presents with generalized body pain 10/10 c/o worse right heel pain poor peripheral pulses. left more palpable down to dp than right chronic skin changes poor perfusion US arterial and venous duplex ordered keep legs elevated with pillow heel protectors will follow with recs thank you (3) Subtherapeutic international normalized ratio (INR) Assessment & Plan: INR > 10 lft's US liver Additional Comments patient passed large bm then agitated, then unresponsive and coded. Eric Woody Feb 25, 2019 16:08
--- NOTE | 2019-02-25 23:43 | Emergency Room Report ---
History of Present Illness General Chief Complaint: Pain Source: Patient, Medical Record, PMD Present Illness Allergies: Coded Allergies: NORTRIPTYLINE (Verified Allergy, Intermediate, 07/17/15) NSAIDS (NON-STEROIDAL ANTI-INFLAMMA (Unverified Allergy, Unknown, 02/07/19 ) Patient History Pertinent Family History: none Social History: Denies: smoking, alcohol use, drug use Immunizations: UTD Reviewed Nursing Documentation: PMH: Agreed; PSxH: Agreed Nursing Documentation-PMH Past Medical History: No History, Except For Hx Cardiac Problems: Yes - STROKE, CHF,depression, anxiety Hx Hypertension: Yes Hx COPD: Yes Hx Cancer: No Hx Gastrointestinal Problems: Yes - diverticulitis, GERD Hx Neurological Problems: Yes - dementia Physical Exam Vital Signs Date Time Temp Pulse Resp B/P (MAP) Pulse Ox O2 Delivery O2 Flow Rate FiO2 02/22/19 12:41 93.9 107 16 93/63 (73) 90 Room Air 02/22/19 19:29 2.0 02/25/19 07:13 50 Procedures Critical Care Time Critical Care Time i. I feel this is a highly complex case requiring extensive working including EKG/Rhythm strip, Xray/CT/US, Blood/urine lab work, repeat exams while in ED, and administration of strong opiates/narcotics for pain control, admission to hospital or close patient follow up. Total time: 30 min bedside evaluation and treatment excludes procedures (EKG). Reason for critical care: cardiac arrest Possible complications: hypotension, hypertension, MO, shock, arrhythmias, metabolic acidosis, end organ damage, respiratory failure. Interventions: chest compressions, epinephrie, calcium, bicarb, d50, IO Course: Patient became bradycardic and then lost pulse. PEA. Compressions started. Given epinephrine. Accu-Chek low. Given D50. Given calcium and bicarbonate. Intraosseous access placed in right tibia. After multiple rounds of epinephrine and compressions patient remains in PEA. Prognosis poor. Resuscitative efforts terminated. Patient expires Consultations: nursing staff, EMS, family Performed by: Dr Carrillo Tolerated well condition = j. because of unstable vital signs this patient had a condition that could potentially threaten life or limb. I feel this is a critical patient who required my full attention while patient was considered critical. Total Critical Care Time excluding procedures was greater than 35 minutes Medical Decision Making Diagnostic Impression: Primary Impression: Left lower lobe pneumonia Additional Impressions: Excessive anticoagulation Atrial fibrillation Qualified Codes: I48.11 - Longstanding persistent atrial fibrillation Renal insufficiency Cellulitis of right leg ER Course I was called to the SDU to this CODE BLUE. Patient became bradycardic. Lost pulse. Initially PEA. Chest compressions started. Patient is DNI. Therefore no intubation. Patient given epinephrine. Given calcium and bicarbonate. Accu -Chek low. Given D50. I placed intraosseous access in the right tibia. After multiple rounds of chest compressions and epinephrine patient remains in PEA. Prognosis is poor. resuscitative efforts terminated. Patient expires at 1420 Last Vital Signs Date Time Temp Pulse Resp B/P (MAP) Pulse Ox O2 Delivery O2 Flow Rate FiO2 02/25/19 12:00 96.3 83 22 120/51 (74) 97 02/25/19 11:41 Nasal Cannula 4.0 02/25/19 07:13 50 Status: worsened Disposition: Condition: Referrals: NON PHYSICIAN (PCP) Phil Carrillo MD Feb 25, 2019 23:43
--- NOTE | 2019-02-26 12:21 | Discharge Summary ---
Discharge Summary Discharge Summary _ SUMMARY DATE OF ADMISSION: 02/22/2019 DATE OF EXPIRATION : 02/25/2019 REASON FOR ADMISSION: [] 83 years old male, resident of sn[facility] facility,with past medical history of hypertension, CVA, congestive heart failure, COPD, GERD, dementia, depression, anxiety, atrial fibrillation, on chronic anticoagulation results of Coumadin, was presented with a total body pain 8 out of 10 on a scale 1-10. [employer] reported oxygen saturation 89%. Patient by himself is a poor historian and unable to provide any history. Upon evaluation blood pressure was low with 93/63 pulse oximetry was 90% on room air patient was tachycardic with a heart rate 107 and hypothermic with a temperature 93.9. Laboratory work- up revealed no leukocytosis hemoglobin 12.6 hematocrit 38.2 platelet count 225. ER INR over 10. Lactic acid 1.8. Sodium 134, potassium 5.4. BUN 49, creatinine 1.9. Lactic acid 2.6. Total bili 1.3, direct bili 0.9. AST 45, ALT 37. Troponin 0 0.034 proBNP 5061 urinalysis revealed no evidence of urinary tract infection. Chest x-ray demonstrated focal asymmetric hazy opacity in the left lower lung concerning for pneumonia. Patient subsequently admitted EKG shows A. fib with a atrial fibrillation with heart rate of 107. Patient's condition was discussed with the medical doctor at [facility] patient was not transferable patient subsequently admitted for further management Currently POA patient is a DNR/DNI status. Patient is a DNR/DNI status. Patient started on fresh frozen plasma transfusion CONSULTANTS: surgery Dr. Woody [facility] COURSE: [] Patient admitted to stepdown. Patient was continued on fresh frozen plasma INR was closely monitored. Patient also received vitamin K. Patient was on IV gentle IV hydration and empiric antibiotic. Blood cultures were negative. Influenza swab was negative. Patient was on antibiotic for pneumonia. Venous duplex bilateral lower extremity revealed no evidence of acute DVT. Patient follow-up with a chest x-ray which revealed increased bilateral infiltrates. Supplemental oxygen provided and titrated to keep pulse oximetry above 92% bronchodilator therapy provided. Patient was continued home medication including digoxin and Lasix and beta-nitin. Statin continued. GI prophylaxis provided. Spironolactone continued. Surgeon seen and evaluated patient for sacral decubitus ulcer present on admission. Wound care provided per surgeon recommendation. Patient also noted to have cellulitis of right leg. Elevated heel protectors applied. Supportive care provided. Overall condition was poor repeated lactic acid 1.8. LFT elevated AST 192 and ALT 125. Troponin repeated troponin was negative. BOOKER CARDOZA was called on 1 6 patient became bradycardic and lost pulses patient ACLS protocol is initiated. Patient is a DNI status patient received medical treatment with epinephrine calcium bicarbonate blood sugar and bicarbonate. Blood sugar was low patient received two 1 ampoule of D50. Intraosseous access was placed in the right tibia. Despite multiple rounds of chest compressions and epinephrine patient remained in pulseless electrical activity. The resuscitative efforts terminated patient pronounced at 1420 and 1 6 because of cardiopulmonary arrest FINAL DIAGNOSES: Possible sepsis Pneumonia Toxic metabolic encephalopathy Lactic acidosis Chronic renal failure Significant coagulopathy Hypotension Sacral decubitus ulcer, present on admission I have been assigned to dictate discharge summary for this account. I was not involved in the patient's management. Kianna Sainz NP Feb 26, 2019 12:21
== END 2019-02-25 17:59 | disposition expired | DRG 871 ==
LOC: EDBD 12:52 → EMR 13:25 → EDBEDREQ 15:14 → EDBEDREQSVC 15:14 → 2W 15:30 → EDBEDREQ 17:38 → 2W 18:37
PROC: 30233K1 Transfusion of Nonautologous Frozen Plasma into Peripheral Vein, Percutaneous Approach (ICD-10-PCS; principal; 2019-02-22)
DX: A41.9 Sepsis, unspecified organism (principal); G92 Toxic encephalopathy; J18.9 Pneumonia, unspecified organism; L03.115 Cellulitis of right lower limb; I13.0 Hypertensive heart and chronic kidney disease with heart failure and stage 1 through stage 4 chronic kidney disease, or unspecified chronic kidney disease; Z88.6 Allergy status to analgesic agent; Z88.8 Allergy status to other drugs, medicaments and biological substances; R79.1 Abnormal coagulation profile; I69.30 Unspecified sequelae of cerebral infarction; I11.0 Hypertensive heart disease with heart failure; I50.9 Heart failure, unspecified; Z66 Do not resuscitate; K21.9 Gastro-esophageal reflux disease without esophagitis; F32.9 Major depressive disorder, single episode, unspecified; F41.9 Anxiety disorder, unspecified; N18.9 Chronic kidney disease, unspecified; F03.90 Unspecified dementia, unspecified severity, without behavioral disturbance, psychotic disturbance, mood disturbance, and anxiety; I48.91 Unspecified atrial fibrillation; L89.156 Pressure-induced deep tissue damage of sacral region
CPT/HCPCS: 36415; 51702; 71045; 80048; 80053; 80162; 80202; 81003; 82150; 82248; 82550; 82962; 83605; 83690; 83735; 83880; 84484; 85007; 85025; 85610; 85651; 85730; 86140; 86710; 86850; 86900; 86901; 86927; 87040; 87081; 92950; 93005; 93970; 96361; 96365; 96367; 96375; 96376; 99291; 99292; J2405; J7030